=== PATIENT | female | born 1970 | race Caucasian/White ===

== ENCOUNTER → 2019-07-21 14:20 | Outpatient (BNVA) | payer BC, SELFPAY | PROVIDERS: Family Provider Family Medicine; PCP Family Medicine; Visit Provider Nurse Practitioner Women's Health | DX: Z01.419 Encounter for gynecological examination (general) (routine) without abnormal findings (principal); Z30.41 Encounter for surveillance of contraceptive pills; Z30.9 Encounter for contraceptive management, unspecified | CPT/HCPCS: 88175 ==

== ENCOUNTER → 2019-11-27 16:05 | Outpatient (BNVA) | payer BC, SELFPAY | PROVIDERS: Family Provider Family Medicine; PCP Family Medicine; Visit Provider Family Medicine | DX: E11.65 Type 2 diabetes mellitus with hyperglycemia (principal); E78.00 Pure hypercholesterolemia, unspecified; M79.7 Fibromyalgia; Z68.42 Body mass index [BMI] 45.0-49.9, adult | CPT/HCPCS: 80053; 80061; 83036 ==

== ENCOUNTER → 2020-05-06 15:48 | Outpatient (BNVA) | payer BC, SELFPAY | PROVIDERS: Family Provider Family Medicine; PCP Family Medicine; Visit Provider Family Medicine | DX: E11.65 Type 2 diabetes mellitus with hyperglycemia (principal); E03.9 Hypothyroidism, unspecified; I10 Essential (primary) hypertension; K21.9 Gastro-esophageal reflux disease without esophagitis; Z68.42 Body mass index [BMI] 45.0-49.9, adult | CPT/HCPCS: 80053; 83036; 84439; 84443; 85025 ==

== ENCOUNTER → 2020-05-24 09:01 | Outpatient (BNVA) | payer BC, SELFPAY | PROVIDERS: Family Provider Family Medicine; PCP Family Medicine; Referring Provider Family Medicine; Visit Provider Internal Medicine | DX: E03.9 Hypothyroidism, unspecified (principal); E11.65 Type 2 diabetes mellitus with hyperglycemia; E66.01 Morbid (severe) obesity due to excess calories | CPT/HCPCS: 99204 ==

== ENCOUNTER 2020-08-19 08:50 | Outpatient (CLI) | payer BC, SELFPAY ==
--- NOTE | 2020-08-19 09:00 | MM_ITS ---
WS: [id number] BILATERAL SCREENING DIGITAL MAMMOGRAM WITH CAD HISTORY: Z12.39 - Encounter for other screening for malignant neoplasm... COMPARISON: 05/25/2018 and 05/03/2014 Bilateral CC and MLO views submitted. Computer aided detection analyzed. Breast composition: There are scattered areas of fibroglandular density. No suspicious masses, microc alcifications or architectural distortion. Numerous nodules and calcifications scattered within each breast. MM/[place] [id number] IMPRESSION: BI-RADS: 2-Benign FOLLOW UP: 1 Year Follow-up
== END 2020-08-19 08:51 | disposition home or self-care (01) ==
LOC: RADSHAW 08:53
PROVIDERS: Family Provider Family Medicine; PCP Family Medicine; Visit Provider Nurse Practitioner Women's Health
DX: Z12.31 Encounter for screening mammogram for malignant neoplasm of breast (principal)
CPT/HCPCS: 77067

== ENCOUNTER → 2021-05-13 11:13 | Outpatient (BNVA) | payer BC, SELFPAY | PROVIDERS: Family Provider Family Medicine; PCP Family Medicine; Visit Provider Internal Medicine | DX: E03.9 Hypothyroidism, unspecified (principal); E11.65 Type 2 diabetes mellitus with hyperglycemia; E78.00 Pure hypercholesterolemia, unspecified | CPT/HCPCS: 80053; 80061; 83036; 84439; 84443 ==

== ENCOUNTER → 2021-08-11 12:34 | Outpatient (BNVA) | payer BC, SELFPAY | PROVIDERS: Family Provider Family Medicine; PCP Family Medicine; Visit Provider Family Medicine | DX: E11.65 Type 2 diabetes mellitus with hyperglycemia (principal); T67.5XXA Heat exhaustion, unspecified, initial encounter; I10 Essential (primary) hypertension | CPT/HCPCS: 80053; 83036 ==

== ENCOUNTER 2021-10-24 07:41 | Outpatient (CLI) | payer BC, SELFPAY ==
--- NOTE | 2021-10-24 07:46 | MM_ITS ---
WS: [id number] VIEWS: MLO and CC views both breasts. 3D digital tomosynthesis is also included in this exam. Comparison made with prior exam of 04/15/2011, 05/02/2013, 05/03/2014, 05/25/2018, 08/19/2020.. Findings: There was no sign of mass, architectural distortion or suspicious calcification in either breast. Fa tty MM/[place] [id number] Impression: BI-RADS: 2-Benign FOLLOW-UP: 1 Year Follow-up This mammogram was also analyzed by the Computer Aided Detection System R2 Imag e Vice President And Portfolio Manager.
== END 2021-10-24 07:42 | disposition home or self-care (01) ==
LOC: RAD 07:43
PROVIDERS: PCP Family Medicine; Visit Provider Nurse Practitioner Women's Health
DX: Z12.31 Encounter for screening mammogram for malignant neoplasm of breast (principal)
CPT/HCPCS: 77063; 77067

== ENCOUNTER 2022-01-30 08:17 | Outpatient (CLI) | payer BC, SELFPAY ==
--- NOTE | 2022-01-30 | ECG_ITS ---
[facility] Test Date: 2022-01-30 Pat Name: Nona Norris Department: Room: Gender: Female Substation Designer: : 1970 Requested By: Ravi Snowden Order Number: [id number] Ramiro MD: Ravi Snowden M.D. Interpretive Statements NAME OF STUDY: LEXISCAN SESTAMIBI STRESS TEST INDICATION: [svt] Procedure: At the baseline, the blood pressure was 107/74 mmHg with a heart rate of 75 bpm. The electrocardiogram showed normal sinus rhythm, normal axis with normal ST and T's. The Lexiscan was infused over a period of 20 seconds. A total of 0.4 mg of Lexiscan was infused. The stress phase was continued for a total of 5 minutes. Heart rate was at the end of stress phase was 97 bpm and a blood pressure of 117/77 mmHg. The EKG at the peak infusion revealed normal sinus rhythm with no significant ST-T wave changes. Sestamibi was injected 20 seconds after the Lexiscan infusion. Blood pressure at the end of recovery phase was 111/71 mmHg with a heart rate of 96 bpm. Conclusion: 1. Normal EKG response to Lexiscan infusion 2. No Lexiscan induced chest pain or cardiac arrhythmia. 3. Normal blood pressure and heart rate response. 4. Sestamibi/sestamibi perfusion scan pending; see separate report. Electronically Signed On 02-15-2022 13:35:45 LOCKER OPERATOR by Ravi Snowden M.D. [id number]
[2022-01-30 08:30] VITALS: BMI 47.5
--- NOTE | 2022-01-30 08:39 | NMCV_ITS ---
NM val perf SPECT r/s* [id number] Nona Norris Age: 52 Gender: F : 1970 Exam Date: 01/30/2022 09:27 Ordering Phys: Ravi Snowden M.D ([email or web address]) Technologist: ELLIE Rodriguez Exam Location: [facility] Indications: VENTRICULAR TACHYCARDIA STRESS TEST Please [facility] IMAGE PROTOCOL Rest/Stress 1 Lexiscan Day Radiopharmaceutical Dose (mCi) Administration Site Administered by Rest: Tc-99m 10.4 IV ELLIE Flores Sestamibi Stress:Tc-99m 32.9 IV ELLIE Flores Sestamibi Rest: 30-Jan-2022 60 Discovery 630 Stress: 30-Jan-2022 30 Discovery 630 0.4mg Lexiscan. Images obtained in supine and prone position. SPECT RESULTS Technical Quality: Excellent Raw Data Analysis: Breast attenuation Image Corrections: No attenuation or motion correction applied Summed Stress Score: 6 Summed Rest Score: 1 Summed Difference Score: 5 PERFUSION FINDINGS There is a small to medium sized area of mostly reversible perfusion defect noted in the apical lateral, apical and apical inferior march. This is consistent with small to medium sized area of small prior infarct with significant jackie-infarct ischemia in the LAD and Left circumflex artery territory. Significant improvement seen on prone imaging. Clinical correlation is required. FUNCTIONAL RESULTS (calculated via Gated SPECT) Stress Image LV EF (%): 88 Stress EDV (mL):82 TID: 1.19 Stress ESV (mL):10 FUNCTIONAL FINDINGS: There is normal left ventricular systolic function. IMPRESSIONS 1. Abnormal myocardial perfusion imaging with small sized prior infarct in LAD and Left circumflex artery terrtories with significant area of jackie-infarct ischemia. Significant improvement is noted on prone imaging, clinical correlation is required. 2. LV systolic function is normal Ravi Snowden MD (Electronically Signed) Final Date: 02 February 2022 09:05 S
[2022-01-30] MEDS: regadenoson 0.4 Mg/5 ml Syringe IVP (10:05)
[2022-01-30 10:23] VITALS: BP 111/71; PULSE 93
== END 2022-01-30 08:18 | disposition home or self-care (01) ==
PROVIDERS: PCP Family Medicine; Visit Provider Family Medicine
DX: I47.20 Ventricular tachycardia, unspecified (principal)
CPT/HCPCS: 36415; 78452; 93017; 96374; A9500; J2785

== ENCOUNTER 2022-02-27 20:33 | Inpatient (IN) | payer BC, SELFPAY ==
[2022-02-27 20:47] VITALS: BP 150/78; PULSE 152; RESP 18; TEMP 36.6; O2SAT 98; BMI 47.5
--- NOTE | 2022-02-27 20:51 | ECG_ITS ---
[facility] Test Date: 2022-02-27 Pat Name: Nona Norris Department: Room: Gender: Female Veneer Repairer Machine: : 1970 Requested By: Mj Yousif Order Number: [id number] Ramiro MD: Britany Simon M.D. Measurements Intervals [place] Rate: 131 P: 64 PA: 135 QRS: 78 QRSD: 78 T: 40 QT: 291 QTc: 430 Interpretive Statements SINUS TACHYCARDIA POSSIBLE ANTERIOR MYOCARDIAL INFARCTION , PROBABLY OLD [30 ms Q WAVE IN V3/V4, OR R < 0.2 mV IN V4] ST DEPRESSION, CONSIDER SUBENDOCARDIAL INJURY [0.1+ mV ST DEPRESSION] No previous ECG available for comparison Electronically Signed On 02-28-2022 7:09:15 DOUBLE ENDING MACHINE OPERATOR by Britany Simon M.D. [id number]
--- NOTE | 2022-02-27 21:16 | XRR_ITS ---
PROCEDURE INFORMATION: Exam: XR Chest Exam date and time: 02/27/2022 9:21 PM Age: 52 years old Clinical indication: Angina; Additional info: Cp TECHNIQUE: Imaging protocol: Radiologic exam of the chest. Views: 1 view. COMPARISON: No relevant prior studies available. FINDINGS: Lungs: Calcified granuloma right lung base. No consolidative pulmonary infiltrates are noted. Pleural spaces: No pleural effusion. No pneumothorax. Heart/Mediastinum: No cardiomegaly. Bones/joints: Unremarkable. XR/XR chest 1V portable [id number] IMPRESSION: No acute abnormality demonstrated.
[2022-02-27] MEDS: metoprolol tartrate 1 mg/1 mL SDV 5 mL 5 MG IVP (22:00)
[2022-02-27 22:11] LABS: Basophils % 0.2 %; Eosinophils # 0.1 10^3/uL (0.0-0.8); Eosinophils % 1.2 %; Hematocrit 43.2 % (37.0-47.0); Hemoglobin 13.6 g/dL (11.5-15.3); Lymphocytes # 2.5 10^3/uL (0.8-4.8); Mean Corpuscular HGB Conc 31.5 g/dL (30.0-36.0); Mean Corpuscular Hemoglobin 28.6 pg (28.0-34.0); Mean Corpuscular Volume 90.8 fl (81-99); Mean Platelet Volume 11.2 fL (7.4-10.4); Monocytes # 0.5 10^3/uL (0.2-0.9); Monocytes % 5.7 %; Neutrophils # 5.11 10^3/uL (1.8-7.7); Neutrophils % 62.5 %; Nucleated Red Blood Cells % 0 %; Platelet Count 276 10^3/cmm (130-400); Red Blood Count 4.76 10^6/uL (4.1-5.3); Red Cell Distribution Width 13.2 % (12.1-15.1); White Blood Count 8.2 10^3/uL (4.0-10.0)
--- NOTE | 2022-02-27 22:11 | ED_ITS ---
HPI - Arrhythmia/Palpitations General: Chief Complaint: Arrhythmia/Palpitations Stated Complaint: Tachycardia 210 Chest Pains Time Seen by Provider: 02/27/22 21:15 Source: patient History of Present Illness: 52-year-old female with a history of tachycardia a nd palpitations. She presents after her apple watch telling her that her heart rate was 210 at home. She was feeling significant palpitations, with discomfort radiating into her throat. She notes that she was a bit short of breath as well, and this worried her. She has had the symptoms before, but symptoms have been controlled on metoprolol more recently. She had a stress test recently that she was told was negative. She takes thyroid medication. She is not complain of being ill otherwise MD complaint: rapid heart beat and palpitations Onset (ago): hour(s) Duration: now resolved Severity: moderate Context: occurred during rest Arrhythmia history: SVT (Potentially) Associated symptoms: Reports anxiety, diaphoresis and short of breath; Deny vomiting Treatments prior to arrival: beta-chance Review of Systems Const: Reports: diaphoresis Eyes: Denies: change in vision ENMT: Denies: throat pain Card: Reports: chest pain and palpitations Resp: Reports: dyspnea; Denies: productive cough, non-productive cough or wheezing GI: Denies: vomiting : Denies: difficulty voiding Skin/Breast: Denies: rash Neuro: Denies: headache(s), weakness in extremities, dizziness or confusion Psych: Reports: anxiety [facility] ED PFSH: Medical History Fibromyalgia Hypercholesteremia Hypertension Hypothyroidism Waldo-- OZH Morbidly obese No pertinent past medical history neghx: dvt/pe PCP: Dr. Dominguez Palpitations Sustained ventricular tachycardia Type 2 diabetes mellitus with hyperglycemia Surgical History No pertinent past surgical history Family History Mother Diabetes Hypertension Colon cancer dx age 68 Father Diabetes Hypertension Heart disease Denies family history of Ovarian cancer Hypercholesteremia Breast cancer Uterine cancer Thyroid disease Stroke Social History Smoking and tobacco status: never smoked Physical Exam Const: COMMON NORMALS: no acute distress GENERAL APPEARANCE: cooperative; not ill appearing and not frail appearing HENMT: COMMON NORMALS: normocephalic, atraumatic and Normal external nose present HEAD & SCALP: normocephalic and atraumatic FACE & SINUS: normal facial exam and face symmetric NOSE: Normal external nose present Eye: COMMON NORMALS: Equal, round and reactive pupils present and EOMs intact bilaterally PUPIL: Yes Equal, round and reactive pupils present Neck/C-Spine: GENERAL: Yes trachea midline Chest: CHEST: Yes Symmetrical chest wall rise Resp: COMMON NORMALS: normal respiratory effort, No retractions, No use of accessory muscles and clear to auscultation bilaterally AUSCULTATION: clear to auscultation bilaterally Cardio: COMMON NORMALS: regular rhythm RATE: tachycardic RHYTHM: regular rhythm GI: COMMON NORMALS: Normal to inspection, nondistended, normoactive bowel sounds present Extremity: COMMON NORMALS: no pedal edema Neuro: PETTY COMA SCALE: document GCS findings [place] coma scale eye opening: Spontaneous Petty coma scale verbal response: Orientated Petty coma scale motor response: Obey commands [place] coma scale total score: 15 SENSORY EXAM: Yes extremities (intact) Psych: COMMON NORMALS: speech normal SPEECH: Yes normal speech Skin: COMMON NORMALS: no rashes or lesions noted GENERAL SKIN EXAM: no rashes or lesions noted Course Consultations: Consultation #1: Shelly Consultation #2: avani Michel Vital Signs: Vital signs: Vital Signs Temperature 98 F 02/27/22 20:47 Pulse Rate 96 02/27/22 23:37 Respiratory Rate 19 H 02/27/22 23:37 Blood Pressure 150/78 02/27/22 20:47 Pulse Oximetry 95 02/27/22 23:37 Oxygen Delivery Me thod 02/27/22 23:37 MDM - Arrhythmia/Palpitations Medical Decision Making 52-year-old female with a history of tachycardia. She presented with a high heart rate. She was given extra metoprolol here IV, and heart rate is under 100 now. She is asymptomatic essentially. EKG initially showed some ST segment depression with tachycardia. This is resolved essentially. Stress test from 01/30 reveals areas of the circumflex and distal LAD with some ischemic propert ies first troponin 40 with a delta of 42 at 2 hours. There were symptoms are resolved, EKG changes with tachycardia and troponin levels are concerning. Consulted cardiology from the ER, recommendations are to treat as a non-STEMI. She was given Plavix and aspirin here as well as Lovenox. She will go to the [facility]. Hospitalist is agreed to see the patient and admit. Cardiology will consult Lab Data 02/27/22 21:39 02/27/22 21:39 Radiology Impressions Chest X-Ray 02/27/22 21:16 IMPRESSION: No acute abnormality demonstrated. Laboratory Results WBC 8.2 10^3/uL (4.0-10.0) 02/27/22 21:39 RBC 4.76 10^6/uL (4.1-5.3) 02/27/22 21:39 Hgb 13.6 g/dL (11.5-15.3) 02/27/22 21:39 Hct 43.2 % (37.0-47.0) 02/27/22 21:39 MCV 90.8 fl (81-99) 02/27/22 21:39 MCH 28.6 pg (28.0-34.0) 02/27/22 21:39 MCHC 31.5 g/dL (30.0-36.0) 02/27/22 21:39 RDW 13.2 % (12.1-15.1) 02/27/22 21:39 Plt Count 276 10^3/cmm (130-400) 02/27/22 21:39 MPV 11.2 fL (7.4-10.4) H 02/27/22 21:39 Neut % (Auto) 62.5 % 02/27/22 21:39 Lymph % (Auto) 30.0 % 02/27/22 21:39 [place] % (Auto) 5.7 % 02/27/22 21:39 Eos % (Auto) 1.2 % 02/27/22 21:39 Baso % (Auto) 0.2 % 02/27/22 21:39 Neut # (Auto) 5.11 10^3/uL (1.8-7.7) 02/27/22 21:39 Lymph # (Auto) 2.5 10^3/uL (0.8-4.8) 02/27/22 21:39 [place] # (Auto) 0.5 10^3/uL (0.2-0.9) 02/27/22 21:39 Eos # (Auto) 0.1 10^3/uL (0.0-0.8) 02/27/22 21:39 Baso # (Auto) 0.0 10^3/uL (0.0-0.1) 02/27/22 21:39 Nucleated RBC % (auto) 0 % 02/27/22 21:39 Nucleated RBCs # 0.0 /100WBC 02/27/22 21:39 PT 12.80 SECONDS (12.1-14.9) 02/27/22 21:39 INR 0.94 (0.8-1.2) 02/27/22 21:39 APTT 23.5 SECONDS (23.9-36.7) L 02/27/22 21:39 D-Dimer <= 0.27 ug/mIFEU (0-0.59) 02/27/22 21:39 Sodium 141 mmol/L (136-145) 02/27/22 21:39 Potassium 4.1 mmol/L (3.5-5.1) 02/27/22 21:39 Chloride 105 mmol/L (98-107) 02/27/22 21:39 Carbon Dioxide 23 mmol/L (22-29) 02/27/22 21:39 Anion Gap 17.1 (5-19) 02/27/22 21:39 BUN 20 mg/dL (6-20) 02/27/22 21:39 Creatinine 0.9 mg/dL (0.5-0.9) 02/27/22 21:39 GFR Calculation 66.0 mL/min (90-130) L 02/27/22 21:39 Glucose 340 mg/dL (65-115) H 02/27/22 21:39 Estimat Average Glucose 226 02/27/22 21:39 Hemoglobin A1c 9.5 % (4.0-6.0) H 02/27/22 21:39 Calculated Osmolality 308 mOsm/kg (285-295) H 02/27/22 21:39 Calcium 9.6 mg/dL (8.5-10.5) 02/27/22 21:39 Total Bilirubin 0.2 mg/dL (0.15-1.2) 02/27/22 21:39 AST 23 U/L (0-32) 02/27/22 21:39 ALT 23 U/L (0-33) 02/27/22 21:39 Alkaline Phosphatase 87 U/L (35-105) 02/27/22 21:39 Troponin T Baseline 40 ng/L (0-10) H 02/27/22 21:39 Troponin T 120 Minute 82.86 ng/L (0-10) H 02/27/22 23:17 Delta Troponin T 42.86 ABS# (0-10) H* 02/27/22 23:17 NT-Pro-B Natriuret Pep 20 pg/mL (0-125) 02/27/22 21:39 Total Protein 7.3 g/dL (6.6-8.7) 02/27/22 21:39 Albumin 4.0 g/dL (3.5-5.2) 02/27/22 21:39 Globulin 3.3 g/dL (1.3-4.6) 02/27/22 21:39 Triglycerides 226 mg/dL (0-150) H 02/27/22 23:17 Cholesterol 88 mg/dL (0-200) 02/27/22 23:17 LDL Cholesterol, Calc 17 mg/dL (50-129) L 02/27/22 23:17 HDL Cholesterol 26 mg/dL (60-100) L 02/27/22 23:17 LDL/HDL Ratio 0.65 RATIO (0.00-3.22) 02/27/22 23:17 Cholesterol/HDL Ratio 3.38 mg/dL (0.0-4.40) 02/27/22 23:17 TSH 1.30 uIU/mL (0.27-4.20) 02/27/22 23:17 Critical Care Time Critical Care Time: Critical Care Time: Yes Total Critical Care Time: 35 Attestation: This case had a high probability of a clinically significant, sudden, or life threatening deterioration of this patient's condition which required my full and direct attention, intervention and personal management. Time is independent of any procedures performed Discharge Plan Discharge Patient Disposition: Admitted As Inpatient Admit Provider: Amanda Bravo Clinical Impression: Chest pain, Non-STEMI (non-ST elevated myocardial infarction) Condition: Stable Coding Level of Care Code ED Caser Up for Chg Fwd Exam Comprehensive
[2022-02-27 22:33] LABS: INR 0.94 (0.8-1.2); Partial Thromboplastin Time 23.5 SECONDS (23.9-36.7)
[2022-02-27 22:36] LABS: D Dimer <= 0.27 ug/mIFEU (0-0.59)
[2022-02-27 22:43] LABS: Troponin(5th) Baseline 40 ng/L (0-10)
[2022-02-27 22:47] LABS: Alanine Aminotransferase 23 U/L (0-33); Alkaline Phosphatase 87 U/L (35-105); Anion Gap 17.1 (5-19); Aspartate Amino Transferase 23 U/L (0-32); Blood Urea Nitrogen 20 mg/dL (6-20); Calcium 9.6 mg/dL (8.5-10.5); Carbon Dioxide 23 mmol/L (22-29); Chloride 105 mmol/L (98-107); Globulin 3.3 g/dL (1.3-4.6); Glucose 340 mg/dL (65-115); NT Pro B Type Natriuretic Pept 20 pg/mL (0-125); Osmolality Calculated 308 mOsm/kg (285-295); Potassium 4.1 mmol/L (3.5-5.1); Sodium 141 mmol/L (136-145); Thyroid Stimulating Hormone 1.48 uIU/mL (0.27-4.20); Total Bilirubin 0.2 mg/dL (0.15-1.2); Total Protein 7.3 g/dL (6.6-8.7)
--- NOTE | 2022-02-27 23:18 | ECG_ITS ---
[facility] Test Date: 2022-02-27 Pat Name: Nona Norris Department: Room: Gender: Female Tutorial Laboratory Supervisor: : 1970 Requested By: Mj Yousif Order Number: [id number] Ramiro MD: Will Michel M.D. Measurements Intervals [place] Rate: 89 P: 132 CT: 137 QRS: 101 QRSD: 85 T: 78 QT: 339 QTc: 414 Interpretive Statements SINUS RHYTHM ARM LEADS REVERSED [INVERTED P AND QRS IN I] Compared to ECG 02/27/2022 20:51:20 Sinus tachycardia no longer present Myocardial infarct finding no longer present ST (T wave) deviation no longer present Electronically Signed On 03-01-2022 20:09:29 DISPATCHER BUS AND TROLLEY by Will Michel M.D. [id number]
[2022-02-27 23:37] VITALS: PULSE 96; RESP 19; O2SAT 95
[2022-02-28] VITALS (23 sets, daily range): BP systolic 98–143; BP diastolic 60–95; PULSE 78–100; RESP 15–19; TEMP 36.8–37.1; O2SAT 91–98
[2022-02-28 00:10] LABS: Troponin 5 2HR 82.86 ng/L (0-10)
[2022-02-28 00:39] LABS: Troponin 5 2HR Delta 42.86 ABS# (0-10)
--- NOTE | 2022-02-28 01:51 | P.HP_ITS ---
Providers/Chief Complaint Primary Care Provider: Raj Dominguez MD Chief Complaint: Tachycardia 210 Chest Pains History of Present Illness Nona Norris is a 52 year old female has medical history of fibromyalgia, hypercholesterolemia, hypertension, hypothyroidism, type 2 diabetes mellitus scented to the hospital today with complaint that her heart rate was 210 at home. She wears an apple watch and noted her heart rate to be really high. She was also feeling palpitations at that time and had some discomfort radiating into her jaw. Patient reports some shortness of breath as well. She says that she has had symptoms like this before but she has been on metoprolol and has been doing better. She recently had a stress test outpatient but was told that it was negative and there is nothing to worry about.. She says she is on t hyroid medicine. Otherwise considers herself pretty healthy. ED course: 150/78, respiratory 19, pulse 96, temperature 98. Patient given IV metoprolol and heart rate controlled to be below 100. EKG done in the ER did not show any acute ischemic changes at this time. Patient is asymptomatic. Ini yuval when heart rate was high EKG did show ST depression with heart tachycardia which was later resolved. Initial troponin 40 with delta of 42 at 2 hours. Cardiology was consulted. They are advised to treat the patient as NSTEMI. She was given aspirin and Plavix in the ER as well as therapeutic Lovenox. She will be admitted to the cardiac stepdown unit. Results from stress test showed abnormal myocardial perfusion imaging with small sized prior infarct in LAD and left circumflex artery territories with significant area of jackie-infarct ischemia. Significant improvement is noted on prone imaging, clinical correlation is required. LV systolic function is normal. There is small to medium sized area of mostly reversible perfusion defect noted in apical lateral apical and apical inferior leads. There is no echo available on file. Medications/Allergies Home Medications Medication Instructions Recorded Confirmed Last Taken Type diclofenac sodium 75 mg See Rx Instructions .Route 02/17/21 11/27/21 Unknown Rx tablet,delayed release .COMPLEX #180 tabs empagliflozin 25 mg tablet 25 mg PO DAILY #90 tabs 05/20/21 11/27/21 Unknown Rx (Jardiance) metformin 500 mg tablet See Rx Instructions .Route 06/27/21 11/27/21 Unknown Rx .COMPLEX #360 tabs metoprolol tartrate 50 mg tablet 25 mg .Route .COMPLEX 07/06/22 10/06/22 Unknown History flash glucose scanning reader #1 ea 08/28/21 11/27/21 Unknown Rx (FreeStyle Rosamaria 2 [place]) flash glucose sensor (FreeStyle #6 ea 08/28/21 11/27/21 Unknown Rx Rosamaria 2 Sensor kit) cyclobenzaprine 10 mg tablet 10 mg PO BID PRN muscle spasm #30 09/02/21 11/27/21 Unknown Rx tabs lisinopril 20 See Rx Instructions .Route 09/15/21 11/27/21 Unknown Rx mg-hydrochlorothiazide 25 mg tablet .COMPLEX #90 tabs pregabalin 200 mg capsule (Lyrica) 200 mg PO BID #180 caps 09/16/21 11/27/21 Unknown Rx rosuvastatin 20 mg tablet 20 mg PO DAILY #90 tabs 11/27/21 11/27/21 Unknown Rx azithromycin 250 mg tablet See Rx Instructions PO .COMPLEX #6 01/12/22 Unknown Rx tabs insulin detemir U-100 100 unit/mL 100 unit SUBCUT BID 30 days #60 mL 01/20/22 Unknown Rx (3 mL) subcutaneous pen (Levemir FlexTouch U-100 Insulin) fluconazole 150 mg tablet 150 mg PO Q3D 12 days #4 tabs 01/21/22 Unknown Rx (Diflucan) insulin lispro 100 unit/mL See Rx Instructions SUBCUT TID #45 01/30/22 Unknown Rx subcutaneous pen (Humalog KwikPen mL (U-100) Insulin) levothyroxine 88 mcg tablet See Rx Instructions .Route 02/05/22 Unknown Rx .COMPLEX #90 tabs omeprazole magnesium 20 mg 20 mg PO BID 90 days #180 tabs 02/19/22 Unknown Rx tablet,delayed release (Prilosec OTC) hydrocodone 10 mg-acetaminophen 1 tab PO DAILY PRN pain 30 days 02/24/22 Unknown Rx 325 mg tablet #30 tabs norethindrone (contraceptive) 0.35 0.35 mg PO DAILY #28 tabs 02/24/22 Unknown Rx mg tablet Allergies Allergy/AdvReac Type Severity Reaction Status Date / Time indomethacin Allergy headache Verified 01/30/22 08:31 Penicillins Allergy SOB Verified 01/30/22 08:31 PFSH Acute PFSH: Medical History Fibromyalgia Hypercholesteremia Hypertension Hypothyroidism Waldo-- OZH Morbidly obese No pertinent past medical history neghx: dvt/pe PCP: Dr. Dominguez Palpitations Sustained ventricular tachycardia Type 2 diabetes mellitus with hyperglycemia Surgical History No pertinent past surgical history Family History Mother Diabetes Hypertension Colon cancer dx age 68 Father Diabetes Hypertension Heart disease Denies family history of Ovarian cancer Hypercholesteremia Breast cancer Uterine cancer Thyroid disease Stroke Social History Smoking and tobacco status: never smoked Vitals/I&O/Wt Last Vital Signs Temp 98 F 02/27/22 20:47 Pulse 96 02/27/22 23:37 Resp 19 H 02/27/22 23:37 BP 150/78 02/27/22 20:47 Pulse Ox 95 02/27/22 23:37 O2 Del Method 02/27/22 23:37 Weight last 48 hrs Weight 117.934 kg Physical Exam Narrative: General: Alert oriented x3, no acute distress HEENT: Normocephalic, atraumatic, EOMI, Cardio: Regular rate rhythm, normal S1-S2, Respiratory: Clear to auscultation bilaterally no wheezes no rhonchi. GI: Abdomen soft, nontender, nondistended, bowel sounds + Behavior: Appropriate and cooperative Extremities: No edema Data 02/27/22 21:39 02/27/22 21:39 A&P Assessment and plan (1) Chest pain: (2) Non-STEMI (non-ST elevated myocardial infarction): (3) Palpitations: (4) GERD (gastroesophageal reflux disease): Qualifiers: Esophagitis presence: without esophagitis Qualified Code(s): K21.9 - Gastro-esophageal reflux disease without esophagitis (5) Morbidly obese: (6) Hypertension: Qualifiers: Hypertension type: essential hypertension Qualified Code(s): I10 - Essential (primary) hypertension (7) Hypothyroidism: Qualifiers: Hypothyroidism type: acquired Qualified Code(s): E03.9 - Hypothyroidism, unspecified (8) Hypercholesteremia: (9) Type 2 diabetes mellitus with hyperglycemia: Qualifiers: Diabetes mellitus continuous churn buttermaker insulin use: without continuous churn buttermaker use Qualified Code(s): E11.65 - Type 2 diabetes mellitus with hyperglycemia Plan #NSTEMI #Abnormal stress test #Diabetes mellitus, insulin-dependent #Hypothyroidism #History of palpitations, SVT, controlled on metoprolol #Hypertension -Therapeutic Lovenox, aspirin, Plavix, beta-chance metoprolol 25 daily ? Insulin sliding scale low-dose intensity ? Detemir 120 units twice daily ? Hold Jardiance at this time ? Pregabalin 200 twice daily ? Trend troponin ? Cardiology consulted. Dr. Michel will evaluate patient ? Check echo ? Hold metformin ? N.p.o. at midnight -Continue levothyroxine, lisinopril 20, hydrochlorothiazide Full code DVT prophylaxis: Therapeutic Lovenox Attestations Medical Necessity Statement*: Will cross greater than 2 midnight stay for management of NSTEMI Coding Level of Care Code Acute Rack Puncher for [facility] Fwd Diagnoses Chest pain R07.9 Non-STEMI (non-ST elevated myocardial infarction) I21.4 Palpitations R00.2 GERD (gastroesophageal reflux disease) K21.9 Esophagitis presence: without esophagitis Morbidly obese E66.01 Hypertension I10 Hypertension type: essential hypertension Hypothyroidism E03.9 Hypothyroidism type: acquired Hypercholesteremia E78.00 Type 2 diabetes mellitus with hyperglycemia E11.65 Diabetes mellitus continuous churn buttermaker insulin use: without continuous churn buttermaker use
[2022-02-28 02:35] LABS: Estmated Average Glucose 226; Hemoglobin A1C 9.5 % (4.0-6.0)
[2022-02-28 02:35] LABS: Chol HDL Ratio 3.38 mg/dL (0.0-4.40); Cholesterol 88 mg/dL (0-200); HDL Cholesterol 26 mg/dL (60-100); LDL Cholesterol Calculated 17 mg/dL (50-129); LDL HDL Ratio 0.65 RATIO (0.00-3.22); Triglycerides 226 mg/dL (0-150)
[2022-02-28] MEDS: aspirin 325 mg Tablet PO (02:58)
[2022-02-28] MEDS: clopidogrel 300 mg Tablet PO (02:58)
--- NOTE | 2022-02-28 03:16 | ECG_ITS ---
[facility] Test Date: 2022-02-28 Pat Name: Nona Norris Department: Room: ED Gender: Female Apple Sorter: : 1970 Requested By: Mj Yousif Order Number: [id number] Ramiro MD: Will Michel M.D. Measurements Intervals [place] Rate: 90 P: 106 FL: 127 QRS: 51 QRSD: 82 T: 38 QT: 345 QTc: 424 Interpretive Statements SINUS RHYTHM POSSIBLE ANTERIOR MYOCARDIAL INFARCTION , PROBABLY OLD [30 ms Q WAVE IN V3/V4, OR R < 0.2 mV IN V4] Compared to ECG 02/27/2022 23:18:34 Myocardial infarct finding now present Electronically Signed On 03-01-2022 20:12:16 CASE PLANNER by Will Michel M.D. [id number]
[2022-02-28] MEDS: sodium chloride 0.9% 1,000 ML 75 ML IV (03:40)
[2022-02-28] MEDS: enoxaparin 120 mg/0.8 mL Syringe SUBCUT (03:45)
[2022-02-28 06:01] LABS: Troponin 5 6HR 132.2 ng/L (0-10); Troponin 5 6HR Delta 92.2 ng/L (0-12)
--- NOTE | 2022-02-28 08:13 | PC.PHAR ---
pt states she takes care of her own medications-pt states she takes all the medications entered-some medications dont show when last filled on ext med history pt states she gets mail order and some meds from the [facility] plan-notes are made in the pharmacy comments
[2022-02-28] MEDS: levothyroxine 88 mcg Tablet PO (08:29)
[2022-02-28] MEDS: hydroCHLOROthiazide 25 mg Tablet PO (08:29)
[2022-02-28] MEDS: lisinopril 20 mg Tablet PO (08:30)
[2022-02-28] MEDS: pantoprazole DR 40 mg Tablet PO ×2 (08:30→17:31)
[2022-02-28] MEDS: atorvastatin 40 mg Tablet 20 MG PO (08:30)
[2022-02-28] MEDS: insulin lispro 100 unit/1 mL SUBCUT ×3 (08:31→21:11)
--- NOTE | 2022-02-28 08:38 | PM.CONSULT ---
Providers/Reason For Consult Consulting Physician/Specialty*: MYLES Michel MD cardiology/ Reason for Consult*: Elevated troponin T/tachycardia/abnormal EKG Requesting Physician: Dr. Bravo Attending Physician: Carlo Quintanilla Primary Care Provider: Raj Dominguez MD History of Present Illness History of Present Illness Nona Norris is a 52 year old female with a history of hypertension, diabetes, dyslipidemia, obesity, presented with a prolonged episode of chest pain and palpitation. The symptoms started around 7:00 in the evening. It may have lasted at least for an hour. She had a pressure-like pain in the mid substernal region, radiating to the right shoulder, to the back, to the neck and to the jaw. She had some shortness of breath. No nausea or sweating. She had a palpitations and the heart rate was found to be in the 200 range on the apple watch. The heart rate is going up and down to 210-120 or 130. Apparently she has been having episodes of palpitations once or twice a month since November. She had a heart monitor which did not reveal anything arrhythmia. She was placed on metoprolol. Usually the episodes may last fully for couple of minutes and then goes away by itself. However yesterday she had this episode lasting longer and had the associated chest discomfort/pain. For this reason, she was brought to the emergency room. She has no fever, chills or cough. The patient had a recent Myocardial perfusion imaging on 02 February. She was found to have areas of fixed and reversible defects, suggesting myocardial scarring in the distribution of the left anterior descending artery and the circumflex artery with significant areas of jackie-infarction ischemia. The results are as mentioned below. She has a history of high blood pressure for the last more than 10 years. She also has type 2 diabetes, insulin requiring. She has dyslipidemia, hypothyroidism and fibromyalgia. Denies any smoking abuse. Her father is known to have some type of arrhythmia and had a recent ablation. No other relevant family history. She denies any fever, chills or cough. Review of Systems Narrative: CONSTITUTIONAL: No fever or chills. EYES: No blurring of vision or other visual disturbances lately. ENT: No hoarseness of voice, auditory disturbances or sore throat. CARDIOVASCULAR: As mentioned above. RESPIRATORY: No significant cough. GASTROINTESTINAL: No hematemesis or melena. GENITOURINARY: No dysuria or hematuria. INTEGUMENTARY: No skin rashes or history of skin cancer. NEURO: No transient ischemic attacks or amaurosis. PSYCHIATRIC: No history of psychosis or major depression. HEMATOLOGIC: No bleeding disorders or significant anemia. ENDOCRINE: Type 2 diabetes MUSCULOSKELETAL: Fibromyalgia as mentioned above ALLERGY/IMMUNOLOGY: As mentioned above. Medications/Allergies Home Medications Medication Instructions Recorded Confirmed Last Taken Type empagliflozin 25 mg tablet 25 mg PO DAILY #90 tabs 05/20/21 02/28/22 Unknown Rx (Jardiance) metoprolol tartrate 50 mg tablet 50 mg PO BID 08/27/21 02/28/22 Unknown History flash glucose scanning reader #1 ea 08/28/21 02/28/22 Unknown Rx (FreeStyle Rosamaria 2 [place]) flash glucose sensor (FreeStyle #6 ea 08/28/21 02/28/22 Unknown Rx Rosamaria 2 Sensor kit) cyclobenzaprine 10 mg tablet 10 mg PO BID PRN muscle spasm #30 09/02/21 02/28/22 Unknown Rx tabs pregabalin 200 mg capsule (Lyrica) 200 mg PO BID #180 caps 09/16/21 02/28/22 Unknown Rx insulin detemir U-100 100 unit/mL 100 unit SUBCUT BID 30 days #60 mL 01/20/22 02/28/22 Unknown Rx (3 mL) subcutaneous pen (Levemir FlexTouch U-100 Insulin) insulin lispro 100 unit/mL See Rx Instructions SUBCUT TID #45 01/30/22 02/28/22 Unknown Rx subcutaneous pen (Humalog KwikPen mL (U-100) Insulin) omeprazole magnesium 20 mg 20 mg PO BID 90 days #180 tabs 02/19/22 02/28/22 Unknown Rx tablet,delayed release (Prilosec OTC) hydrocodone 10 mg-acetaminophen 1 tab PO DAILY PRN pain 30 days 02/24/22 02/28/22 Unknown Rx 325 mg tablet #30 tabs albuterol sulfate 90 mcg/actuation 2 puff inhalation QID PRN 02/28/22 02/28/22 Unknown History aerosol inhaler (ProAir HFA) Shortness Of Breath diclofenac sodium 75 mg 75 mg PO BID PRN Pain 02/28/22 02/28/22 Unknown History tablet,delayed release fluconazole 150 mg tablet 150 mg PO Q3D PRN yeast infection 02/28/22 02/28/22 Unknown History levothyroxine 88 mcg tablet 88 mcg PO QAM 02/28/22 02/28/22 Unknown History lisinopril 20 1 tab PO QAM 02/28/22 02/28/22 Unknown History mg-hydrochlorothiazide 25 mg tablet metformin 500 mg tablet 1,000 mg PO BID 02/28/22 02/28/22 Unknown History norethindrone (contraceptive) 0.35 0.35 mg PO BEDTIME 02/28/22 02/28/22 Unknown History mg tablet rosuvastatin 20 mg tablet 20 mg PO QAM 02/28/22 02/28/22 Unknown History Allergies Allergy/AdvReac Type Severity Reaction Status Date / Time indomethacin Allergy headache Verified 02/28/22 08:02 Penicillins Allergy SOB Verified 02/28/22 08:02 Current Medications Generic Name Dose Route Start Last Admin Trade Name Freq PRN Reason Stop Dose Admin Atorvastatin Calcium 20 mg 02/28/22 09:00 02/28/22 08:30 Atorvastatin 40 Mg Tablet PO 20 mg DAILY LUCIUS Administration Enoxaparin Sodium 120 mg 02/28/22 02:00 02/28/22 03:45 Enoxaparin 120 Mg/0.8 Ml Syringe SUBCUT 120 mg Q12H LUCIUS Administration Hydrochlorothiazide 25 mg 02/28/22 09:00 02/28/22 08:29 Hydrochlorothiazide 25 Mg Tablet PO 25 mg DAILY LUCIUS Administration Sodium Chloride 1,000 mls @ 75 mls/hr 02/28/22 02:00 02/28/22 03:40 Sodium Chloride 0.9% IV 75 mls/hr .[id number] LUCIUS Administration Insulin Human Lispro 0 unit 02/28/22 08:00 02/28/22 08:31 Insulin Lispro 100 Unit/1 Ml SUBCUT 8 unit WM&BEDTIME LUCIUS Administration Protocol Levothyroxine Sodium 88 mcg 02/28/22 09:00 02/28/22 08:29 Levothyroxine 88 Mcg Tablet PO 88 mcg DAILY LUCIUS Administration Lisinopril 20 mg 02/28/22 09:00 02/28/22 08:30 Lisinopril 20 Mg Tablet PO 20 mg DAILY LUCIUS Administration Pantoprazole Sodium 40 mg 02/28/22 09:00 02/28/22 08:[address] 40 Mg Tablet PO 40 mg BID LUCIUS Administration PFSH Acute PFSH: Medical History Fibromyalgia Hypercholesteremia Hypertension Hypothyroidism Wal[place]-- OZH Morbidly obese No pertinent past medical history neghx: dvt/pe PCP: Dr. Dominguez Palpitations Sustained ventricular tachycardia Type 2 diabetes mellitus with hyperglycemia Surgical History No pertinent past surgical history Family History Mother Diabetes Hypertension Colon cancer dx age 68 Father Diabetes Hypertension Heart disease Denies family history of Ovarian cancer Hypercholesteremia Breast cancer Uterine cancer Thyroid disease Stroke Social History Smoking and tobacco status: never smoked Vitals/I&O/Wt Last Vital Signs Temp 98 F 02/27/22 20:47 Pulse 91 02/28/22 06:50 Resp 18 02/28/22 06:50 BP 139/73 02/28/22 06:50 Pulse Ox 95 02/28/22 06:50 O2 Del Method 02/28/22 06:50 Weight last 48 hrs Weight 260 lb Physical Exam Narrative: GENERAL: The patient is alert and oriented times three. Not in any acute distress. Morbidly obese HEENT: No significant pallor, icterus or lymphadenopathy.Oral cavity: There are no mucous membrane lesions. NECK: Trachea appears to be central. No masses noted. No JVD or thyromegaly appreciated. RESPIRATORY: Chest is symmetrical. No intercostals muscle retraction or any accessory muscle activation. There is no chest wall tenderness. Breath sounds are heard bilaterally. No rales or rhonchi heard. No evidence of any consolidation. BREASTS: Deferred. HEART: The heart sounds are normal. No S3 or S4. No significant murmurs. No pericardial rub ABDOMEN: No vessel pulsations or distention. No tenderness. No organomegaly appreciated. Bowel sounds are normally heard. : Deferred. RECTAL: Deferred. LYMPHATIC: No lymphadenopathy noted in the neck. EXTREMITIES: No edema or cyanosis. No clubbing. MUSCULOSKELETAL: No acute joint deformities or swelling SKIN: There are no significant rashes or ecchymosis NEUROPSYCHIATRIC: The patient is alert and oriented x3. Appears to be in a good mood. No tremors or rigidity noted. Data 02/27/22 21:39 02/27/22 21:39 Other Labs: Laboratory Last Values WBC 8.2 10^3/uL (4.0-10.0) 02/27/22 21:39 RBC 4.76 10^6/uL (4.1-5.3) 02/27/22 21:39 Hgb 13.6 g/dL (11.5-15.3) 02/27/22 21:39 Hct 43.2 % (37.0-47.0) 02/27/22 21:39 MCV 90.8 fl (81-99) 02/27/22 21:39 MCH 28.6 pg (28.0-34.0) 02/27/22 21:39 MCHC 31.5 g/dL (30.0-36.0) 02/27/22 21:39 RDW 13.2 % (12.1-15.1) 02/27/22 21:39 Plt Count 276 10^3/cmm (130-400) 02/27/22 21:39 MPV 11.2 fL (7.4-10.4) H 02/27/22 21:39 Neut % (Auto) 62.5 % 02/27/22 21:39 Lymph % (Auto) 30.0 % 02/27/22 21:39 [place] % (Auto) 5.7 % 02/27/22 21:39 Eos % (Auto) 1.2 % 02/27/22 21:39 Baso % (Auto) 0.2 % 02/27/22 21:39 Neut # (Auto) 5.11 10^3/uL (1.8-7.7) 02/27/22 21:39 Lymph # (Auto) 2.5 10^3/uL (0.8-4.8) 02/27/22 21:39 [place] # (Auto) 0.5 10^3/uL (0.2-0.9) 02/27/22 21:39 Eos # (Auto) 0.1 10^3/uL (0.0-0.8) 02/27/22 21:39 Baso # (Auto) 0.0 10^3/uL (0.0-0.1) 02/27/22 21:39 Nucleated RBC % (auto) 0 % 02/27/22 21:39 Nucleated RBCs # 0.0 /100WBC 02/27/22 21:39 PT 12.80 SECONDS (12.1-14.9) 02/27/22 21:39 INR 0.94 (0.8-1.2) 02/27/22 21:39 APTT 23.5 SECONDS (23.9-36.7) L 02/27/22 21:39 D-Dimer <= 0.27 ug/mIFEU (0-0.59) 02/27/22 21:39 Sodium 141 mmol/L (136-145) 02/27/22 21:39 Potassium 4.1 mmol/L (3.5-5.1) 02/27/22 21:39 Chloride 105 mmol/L (98-107) 02/27/22 21:39 Carbon Dioxide 23 mmol/L (22-29) 02/27/22 21:39 Anion Gap 17.1 (5-19) 02/27/22 21:39 BUN 20 mg/dL (6-20) 02/27/22 21:39 Creatinine 0.9 mg/dL (0.5-0.9) 02/27/22 21:39 GFR Calculation 66.0 mL/min (90-130) L 02/27/22 21:39 Glucose 340 mg/dL (65-115) H 02/27/22 21:39 Estimat Average Glucose 226 02/27/22 21:39 Hemoglobin A1c 9.5 % (4.0-6.0) H 02/27/22 21:39 Calculated Osmolality 308 mOsm/kg (285-295) H 02/27/22 21:39 Calcium 9.6 mg/dL (8.5-10.5) 02/27/22 21:39 Total Bilirubin 0.2 mg/dL (0.15-1.2) 02/27/22 21:39 AST 23 U/L (0-32) 02/27/22 21:39 ALT 23 U/L (0-33) 02/27/22 21:39 Alkaline Phosphatase 87 U/L (35-105) 02/27/22 21:39 Troponin T Baseline 40 ng/L (0-10) H 02/27/22 21:39 Troponin T 120 Minute 82.86 ng/L (0-10) H 02/27/22 23:17 Delta Troponin T 42.86 ABS# (0-10) H* 02/27/22 23:17 Troponin T Hi Sens 6Hr 132.2 ng/L (0-10) H 02/28/22 05:25 Troponin T Hi Sens 6Hr Delta 92.2 ng/L (0-12) H* 02/28/22 05:25 NT-Pro-B Natriuret Pep 20 pg/mL (0-125) 02/27/22 21:39 Total Protein 7.3 g/dL (6.6-8.7) 02/27/22 21:39 Albumin 4.0 g/dL (3.5-5.2) 02/27/22 21:39 Globulin 3.3 g/dL (1.3-4.6) 02/27/22 21:39 Triglycerides 226 mg/dL (0-150) H 02/27/22 23:17 Cholesterol 88 mg/dL (0-200) 02/27/22 23:17 LDL Cholesterol, Calc 17 mg/dL (50-129) L 02/27/22 23:17 HDL Cholesterol 26 mg/dL (60-100) L 02/27/22 23:17 LDL/HDL Ratio 0.65 RATIO (0.00-3.22) 02/27/22 23:17 Cholesterol/HDL Ratio 3.38 mg/dL (0.0-4.40) 02/27/22 23:17 TSH 1.30 uIU/mL (0.27-4.20) 02/27/22 23:17 Myocardial perfusion imaging: My impression: ?1. Abnormal myocardial perfusion imaging with small sized prior infarct in LAD ?and Left circumflex artery terrtories with significant area of jackie-infarct ?ischemia.? Significant improvement is noted on prone imaging, clinical ?correlation is required. ?2. LV systolic function is normal Echo: My impression: ?Normal left ventricular size and systolic function, EF 59 %. No ?regional wall motion abnormalities. Grade I/IV diastolic ?dysfunction (abnormal relaxation filling pattern), normal to ?mildly elevated filling pressures. ?Trace tricuspid valve regurgitation. ?Normal cardiac chamber sizes. ?There is no pericardial effusion. ?No similar previous studies are available for comparison EKG 1: My Interpretation: The EKG showed sinus tachycardia with a rate of [address] depressions in the inferior lateral leads. Poor R wave progression. EKG 2: My Interpretation: Normal sinus rhythm with poor R wave progression. No severe ST-T changes. Other data: 24-hour Holter monitor in October 23. The observed rhythms are sinus rhythm to sinus tachycardia. The Maximum Heart Rate recorded was 142 bpm, :02:38 pm, the Minimum Heart Rate recorded was 82 bpm, Day :16:15 am and the Average Heart Rate was 101 bpm. 2. There were 67 PVCs with a burden of 0.05 %. 3. There were 26 PSVCs with a burden of 0.02 %. There were 2 occurrences of Supraventricular Tachycardia with the longest episode 12 beats, Day :02:40 pm and the fastest episode 142 bpm, Day :02:40 pm. 4. There were 4 Patient reported events.1 unspecified patient symptom correlated with sinus tachycardia with isolated ventricular ectopy.? Other episodes correlated with sinus tachycardia. A&P Assessment and plan (1) Non-STEMI (non-ST elevated myocardial infarction): The patient is her clinical features are consistent with a non-ST elevation myocardial infarction. She has Significant delta for the troponin T at the 2 and 6-hour intervals. The prolonged episode of chest pain, multiple risk factors for coronary artery disease, elevated troponin T and abnormal EKG-all are suggesting. Patient may be treated with subcu Lovenox, Plavix, aspirin, beta-chance, statin and other symptomatic measures. The abnormal Myocardial perfusion imaging also is suggestive of underlying coronary ischemia. Because of her obesity, the specificity of the study could be compromised. (2) Tachyarrhythmia: The exact nature of the tachyarrhythmia is not clear at this time. This may need to be further evaluated. Possibility of atrial fibrillation is a consideration. (3) Hypertension: Blood pressures are stage II. Antihypertensive medications need to be optimized. Qualifiers: Hypertension type: essential hypertension Qualified Code(s): I10 - Essential (primary) hypertension (4) Morbidly obese: Importance of lifestyle modification need to be further emphasized. (5) Fibromyalgia: May continue on the current management (6) Hypothyroidism: Clinically seems to be euthyroid. Qualifiers: Hypothyroidism type: acquired Qualified Code(s): E03.9 - Hypothyroidism, unspecified (7) Type 2 diabetes mellitus with hyperglycemia: Aggressive management be appropriate. We will hold off on the metformin. Qualifiers: Diabetes mellitus long distance billing operator insulin use: without halfway use Qualified Code(s): E11.65 - Type 2 diabetes mellitus with hyperglycemia (8) Dyslipidemia: Patient is on a high-dose statin. May continue the same. Plan In view of the patient's high risk status, in order to further evaluate the coronary status, a cardiac catheterization would be appropriate. The risk of bleeding, hematoma, vascular injury, myocardial infarction, myocardial perforation, malignant cardiac arrhythmias ,CVA, renal failure and other concomitant complications were explained in detail. Patient understood this well and consented to proceed. We may go ahead and do schedule for the cardiac catheterization as early as possible. Based on the results, further recommendations will be made. Consult Attestations Medical Necessity Statement: Patient requires continued hospital stay for close monitoring and further management Coding Level of Care Code Acute [place] [employer] Fwd History Detailed Exam Detailed Diagnoses Non-STEMI (non-ST elevated myocardial infarction) I21.4 Tachyarrhythmia R00.0 Hypertension I10 Hypertension type: essential hypertension Morbidly obese E66.01 Fibromyalgia M79.7 Hypothyroidism E03.9 Hypothyroidism type: acquired Type 2 diabetes mellitus with hyperglycemia E11.65 Diabetes mellitus halfway insulin use: without long distance billing operator use Dyslipidemia E78.5
--- NOTE | 2022-02-28 08:46 | USCV_ITS ---
Nona Norris Age: 52 Gender: F : 1970 Exam Date: 02/28/2022 08:54 Ordering Phys: Amanda Bravo MD Technologist: DUC Exam Location: [facility] [place] Indication: Chest Pain BP: 139 / 73 HR: 76 Rhythm: Sinus Technical Quality: Adequate MEASUREMENTS (Male / Female) Normal Values 2D ECHO LV Diastolic Diameter PLAX 4.5 cm 4.2 - 5.9 / 3.9 - 5.3 cm LV Systolic Diameter PLAX 3.9 cm IVS Diastolic Thickness 0.7 cm 0.6 - 1.0 / 0.6 - 0.9 cm IVS Systolic Thickness 1.1 cm LVPW Diastolic Thickness 0.7 cm 0.6 - 1.0 / 0.6 - 0.9 cm LVPW Systolic Thickness 1.0 cm LVOT Diameter 2.1 cm LV Ejection Fraction 2D Teich 31.9 % LV Ejection Fraction MOD 2C 59.8 % LV Ejection Fraction 2C AL 58.5 % LA Diameter 3.8 cm M-MODE Aortic Annulus Diameter 2.7 cm LA Ao Ratio MM 1.5 MV E Point Septal Separation 0.2 cm DOPPLER AV Peak Velocity 183.0 cm/s LVOT Peak Velocity 131.0 cm/s AV Area Cont Eq vti 2.4 cm squared AV Area Cont Eq pk 2.4 cm squared MV Area PHT 2.7 cm squared Mitral E to A Ratio 0.9 MV E' Velocity 61.0 cm/s Mitral E to MV E' Ratio 16.7 Mitral E to LV E' Lateral Ratio 16.7 Mitral E to LV E' Septal Ratio 16.7 TR Peak Velocity 193.7 cm/s TR Peak Gradient 15.0 mmHg TV Peak E Velocity 57.0 cm/s Right Atrial Pressure 3.0 mmHg Pulmonary Artery Systolic Pressu 18.0 mmHg PV Peak Velocity 104.0 cm/s FINDINGS Left Ventricle Normal left ventricular size and systolic function, EF 59 %. No regional wall motion abnormalities. Grade I/IV diastolic dysfunction (abnormal relaxation filling pattern), normal to mildly elevated filling pressures. Right Ventricle The right ventricle is normal in size and function. Right Atrium The right atrium is normal in size. Left Atrium The left atrium is normal in size. Mitral Valve No gross abnormalities noted Aortic Valve No gross abnormalities noted Tricuspid Valve Trace tricuspid valve regurgitation. Pulmonic Valve Pulmonic valve not well visualized. Pericardium Normal pericardium without effusion. Aorta Normal ascending aorta dimension. IVC Inferior vena cava not visualized. CONCLUSIONS Normal left ventricular size and systolic function, EF 59 %. No regional wall motion abnormalities. Grade I/IV diastolic dysfunction (abnormal relaxation filling pattern), normal to mildly elevated filling pressures. Trace tricuspid valve regurgitation. Normal cardiac chamber sizes. There is no pericardial effusion. No similar previous studies are available for comparison Dr Will Michel MD FACC (Electronically Signed) Final Date: 28 February 2022 10:03 S
[2022-02-28] MEDS: metoprolol tartrate 50 mg Tablet 25 MG PO ×2 (09:26→21:19)
[2022-02-28] MEDS: clopidogrel 75 mg Tablet PO (09:28)
[2022-02-28] MEDS: pregabalin 100 mg Capsule 200 MG PO ×2 (09:29→17:31)
[2022-02-28] MEDS: aspirin 81 mg EC Tablet PO (09:29)
[2022-02-28] MEDS: insulin glargine 100 units/1 mL 96 UNIT SUBCUT ×2 (09:31→19:00)
--- NOTE | 2022-02-28 10:22 | XACV_ITS ---
Exam Room: 2 Ht: 157 cm Wt: 118 kg BSA: 2.34 m2 Gender: Female : 1970 Exam Priority: Routine Procedure(s): Procedure Description: Diagnostic procedure Procedure Description: Left Heart Catheterization Procedure Description: Left ventriculography Procedure Description: Coronary Angiography Anand PAREKH; Diagnostic Cath Status: Urgent Diagnostic Findings * Left main is a medium caliber vessel with no significant stenotic lesions. * The left anterior descending artery is a medium caliber vessel which appears to taper off towards the LV apex. The proximal segment of the artery was found to have mild diffuse intimal irregularities. At the takeoff of the first diagonal branch, there was a 40% segmental narrowing in the LAD. The ostium of the first diagonal branch also was found to have around 40% lesion. No other significant stenotic lesions were noted. * The left circumflex artery is a medium to large caliber vessel with no significant obstructive lesion. * The right coronary artery is a medium caliber dominant vessel which appears to bifurcate into the PDA and PLV branches distally. No significant stenotic lesions were noted in these vessels. Conclusions 1. This is a 52-year-old white female with history of hypertension, type 2 diabetes, dyslipidemia and obesity, presenting with prolonged episode of chest pain and palpitations. Elevated troponin T suggesting a non-ST elevation myocardial infarction. In view of her multiple risk factors and the clinical presentation, in order to further evaluate her coronary status, a cardiac catheterization was recommended. Patient underwent left heart catheterization with left and right coronary angiogram and LV angiogram today. The findings are as follows. 2. Around 40% lesion in the LAD at the origin of the first diagonal branch involving the ostium of the diagonal branch. No significant lesions in the other vessels. Normal LV ejection fraction. Elevated LVEDP of 20 mmHg suggesting left-ventricular diastolic dysfunction. Diagnostic RX Recommendation: medical therapy and/or counseling LV EDP: 29 mmHg Ventriculography Ejection Fraction: 65.0 % Left Ventriculography Findings: * The LV gram was performed in the CHAPIN view. The LV cavity appeared to be of normal size. LV ejection fraction was around 65%. The LVEDP was 29 mmHg prior to the LV angiogram and then down to 26, following the LV angiogram. Pressures Phase:Rest AO : 120 / 78 ( 95 ) @ 11:36:00 AM 92 / 67 ( 79 ) @ 11:39:00 AM 127 / 77 ( 98 ) @ 11:49:00 AM 127 / 78 ( 98 ) @ 11:49:00 AM LV : 148 / -8 / 21 @ 11:48:00 AM 136 / 10 / 29 @ 11:48:00 AM 142 / 1 / 26 @ 11:49:00 AM Valves Phase:DefaultPhase AV : 15.0 @ 12:10:15 PM AV Mean Gradient: 12.0 @ 12:10:15 PM Clinical Evaluation EBL: 5mL-10mL Procedural Details Procedure Consent Obtained. Admit Source: Emergency department. Pre-Procedure Time Out. Identified patient by full name and date of as verbalized by the patient/guarantor. Does the consent match the physician's order: Yes. Accurate & Complete Informed Consent: Yes. Inpatient/Outpatient History & Physical on Chart: Yes. If H&P is completed, is and addenduem needed: No; If yes, is the addendum complete: N/A. Visualize and Verify Site with Patient/Guarantor: N/A. Relevant Radiology Images available: N/A. The risks, benefits, and alternatives of sedation and/or procedure were discussed by physician. The patient agrees to continue. Procedure started. [facility] Clinical Fraility Score: 4: Vulnerable. Chest Pain Symptom Assessment: Typical Angina Symptoms. Cardiovascular Instability: No. Vault Maker Indications: New Onset Angina. Current diagnosis: NSTEMI. PERRLA. Strong, equal hand civil structural engineer bilaterally. Lungs clear x 5 lobes. IV Site on Arrival: 18 gauge in the left forearm. IV Fluids: 0.9% NaCl at KVO. 0 mL infused prior to manager labor relations. Pre Procedural Pulses: bilateral radial was 3+. Oxygen started at 2liters/min via nasal canula. right radial was prepped with chloroprep then draped in the usual sterile fashion. Baseline sample Acquired. HR: 98 BPM. Physician notified. Physician arrived. Physician scrubbed in. Immediate Pre-Procedure Time Out. Correct Patient: Yes; Correct Procedure: Yes; Correct Site: Yes; Correct Patient Position: Yes; Correct Supplies: Yes; Dried Flammable Prep: Yes; Blood Products Available: N/A;. Lidocaine 1% infiltrated to the right radial. Arterial access obtained. A 5 hungarian Duc catheter in over wire. Multiple views taken of left coronary artery. Catheter redirected to the RCA. Catheter inserted over the exchange wire. A 5 hungarian JR4 catheter in over wire. Multiple views taken of right coronary artery. Dr Navarro already present. Physician review of cine films. Catheter removed over the exchange wire. A 5 hungarian Angled Pig catheter in over wire. EDP Sample taken: LV 148/-9,21; HR: 84 BPM; SpO2: 94%. LV gram performed in CHAPIN @ 10 mL/second for a total of 30 mL. Patient EF: Normal. EDP Sample taken: LV 136/10,29; HR: 95 BPM; SpO2: 97%. Pullback taken: LV 142/1,26; AO 127/77(98); Mean: 12mmHg, Peak to Peak: 15mmHg, SEP: 25sec/min; HR: 95 BPM; SpO2: 95%. Catheter removed over the exchange wire. Physicians review of cine films. Side port of sheath attached to Normal Saline flush at KVO to maintain patency. A TR Band was successful obtaining hemostatsis at the Right Radial artery insertion site. Catheter out. Post Procedure: Pulses reassessed and unchanged. PERRLA. Strong, equal hand civil structural engineer bilaterally. No VTE prophylaxis required. Medication's Wasted: Lidocaine 1% = 2 mL. Medication's Wasted: Nitro = 49.8 mg. Medication's Wasted: Heparin = 3000 units. Medication's Wasted: Other = 1 ml versed. Medication's Wasted: Other = 50 fentanyl mcg. Total IV fluids: 265 mL. Post-op diagnosis: mild CAD. Complications: none. Estimated blood loss: 5mL-10mL. Responsiveness - Normal response to verbal stimuli; alert and oriented, PERRLA. Airway - Unaffected, no intervention required; spontaneous ventilation. Circulation: W/N/L, pulses unchanged. Procedure completed. Patient transferred by wheelchair to CPRU. Vital chart was stopped. Access Site Site: Right Radial artery Sheath Size: 6 Fr Hemostasis Method: TR Band Hemostasis Success: Successful Procedure Medications Start: 11:23 AM Stop: : AM Medication: Versed Amount: 1 mg Route: I.V. Start: 11:23 AM Stop: : AM Medication: Fentanyl Amount: 50 mcg Route: I.V. Start: 11:24 AM Stop: :24 AM Medication: Versed Amount: 1 mg Route: I.V. Start: 11:33 AM Stop: 11:33 AM Medication: Verapamil Amount: 5 mg Route: I.A. Start: 11:33 AM Stop: 11:33 AM Medication: Nitrogylcerin Amount: 200 mcg Route: I.A. Start: 11:34 AM Stop: 11:34 AM Medication: 0.9% Saline Amount: 200 ml Route: I.V. bolus Start: 11:35 AM Stop: 11:35 AM Medication: Versed Amount: 1 mg Route: I.V. Start: 11:37 AM Stop: 11:37 AM Medication: Heparin Amount: 3000 units Route: I.V. I, the attending physician, have reviewed and verified all procedure medications. Yes, all medications given per verbal order History/Risk Factors Hypertension: Yes Dyslipidemia: Yes Peripheral Arterial Disease (PAD): No Myocardial Infarction (LA): No Obesity: No Tobacco Use: Never Prior Interventions PCI: No CABG: No Valve Surgery: No Report Signatures Finalized by Dr Will Michel MD [facility] on 03/02/2022 05:31 PM
--- NOTE | 2022-02-28 11:22 | W.PM.OPSUD ---
Surgery/Procedure H&P Update DATE OF PROCEDURE: February 28, 2022 DATE H&P PERFORMED: 02/28/22 H&P UPDATE INFORMATION: I have reviewed H&P completed within last 30 days, I have examined patient prior to procedure, No changes to prior documentation and Changes to prior documentation as noted here PREOP DIAGNOSIS: NSTEMI PRIMARY INDICATION FOR PROCEDURE: UAP/NSTEMI PATIENT REASSESSED PRIOR TO SEDATION, WITH NO CHANGE NOTED: Yes PHYSICAL EXAM: alert, oriented x 3, clear to auscultation bilaterally, regular rate & rhythm and operative site marked AIRWAY EVAL/ANESTHESIA PLAN: normal airway, see other exam findings, ASA III, Monitored Anesthesia, Local Anesthesia, Risks, benefits & alternatives of sedation and/or procedure discussed and Patient agrees to continue as planned
--- NOTE | 2022-02-28 14:36 | PC.NURSE ---
around 1205- cpru received pt from laboratory associate post diagnostic c. tr band on right wrist with palpable distal pulse. pt complains of no pain. no bruise or hematoma noted. pt educated with restrictions of right wrist and pt stated understanding. pt placed on vital monitor and will be monitored per protocol.
--- NOTE | 2022-02-28 14:51 | PC.NURSE ---
tr band removed without complications around 220. no bruising noted. pt still complains of no pain. again, pt educated on restrictions of right wrist. pt again stated understanding.
[2022-02-28] MEDS: sodium chloride 0.9% 1,000 ML 100 ML IV (15:45)
--- NOTE | 2022-02-28 15:46 | PC.NURSE ---
RECEIVED PT FROM CPRU POST DIAGNOSTIC CARDIAC LEFT CATH TR BAND HAS BEEN OFF UPON ARRIVAL TO ROOM. NO HEMATOMA, BLEEDING OR SWELLING. RADIAL PULSE IS PALPABLE TO THE TOUCH. ELEVATE RIGHT FA W/A PILLOW. FLUIDS RUNNING AT 100 CC ORDERD POST CATH. CALL LIGHT PROVIDED. AT BEDSIDE.
[2022-02-28 16:48] LABS: Glucose Point of Care 182 mg/dL (70-110)
--- NOTE | 2022-02-28 18:50 | P.PN_ITS ---
Subjective Subjective: She is doing better this morning. No chest pain or pressure. Denies shortness of breath. Pending conversation with cardiology. Vitals/I&O/Wt Last Vital Signs Temp 98 F 02/27/22 20:47 Pulse 78 02/28/22 16:00 Resp 16 02/28/22 16:00 BP 128/85 02/28/22 16:00 Pulse Ox 93 02/28/22 16:00 O2 Del Method 02/28/22 16:00 02/28/22 02/28/22 02/28/22 06:59 14:59 22:59 Intake Total 200 / 200 Balance 200 / 200 Weight last 48 hrs Weight 117.934 kg Physical Exam Narrative: Family at bedside. Const: COMMON NORMALS: patient oriented x3 and alert GENERAL APPEARANCE: cooperative ORIENTATION/CONSCIOUSNESS: Yes awake HENMT: COMMON NORMALS: oropharynx normal Neck/C-Spine: COMMON NORMALS: no JVD Resp: COMMON NORMALS: normal respiratory effort and clear to auscultation bilaterally AUSCULTATION: clear to auscultation bilaterally Cardio: COMMON NORMALS: no JVD, regular rhythm, S1 normal heart sound present, S2 normal heart sound present and No murmurs present (Cardio) RHYTHM: regular rhythm HEART SOUNDS: S1 normal heart sound present and S2 normal heart sound present GI: COMMON NORMALS: Normal to inspection, nondistended, normoactive bowel sounds present, Soft to palpation and non-tender PALPATION: Yes Soft to palpation Extremity: COMMON NORMALS: no joint enlargement and no pedal edema Neuro: COMMON NORMALS: patient oriented x3 and moves all extremities SENS ORIUM/ORIENTATION: Yes alert Skin: COMMON NORMALS: no rashes or lesions noted GENERAL SKIN EXAM: no rashes or lesions noted Data 02/27/22 21:39 02/27/22 21:39 A&P Assessment and plan (1) Non-STEMI (non-ST elevated myocardial infarction): TTE with normal EF, grade 1 diastolic dysfunction. No R WMA. Appreciate cardiology consultation. Additional assessment with coronary angiography, no stenosis requiring intervention per report. Continue Plavix. Can stop aspirin. Stop anticoagulation. Continue metoprolol to help prevent additional tachycardia. Nitroglycerin as needed for possible vasospasm. Continue to optimize cardiovascular risk factors. (2) Chest pain: D-dimer not elevated, low likelihood of PE. Cardiac assessment as above. Chest x-ray without acute abnormality. (3) Palpitations: Continue metoprolol. (4) GERD (gastroesophageal reflux disease): Qualifiers: Esophagitis presence: without esophagitis Qualified Code(s): K21.9 - Gastro-esophageal reflux disease without esophagitis (5) Morbidly obese: (6) Hypertension: Qualifiers: Hypertension type: essential hypertension Qualified Code(s): I10 - Essential (primary) hypertension (7) Hypothyroidism: Qualifiers: Hypothyroidism type: acquired Qualified Code(s): E03.9 - Hypothyroidism, unspecified (8) Hypercholesteremia: (9) Type 2 diabetes mellitus with hyperglycemia: Qualifiers: Diabetes mellitus group home insulin use: without continuous churn buttermaker use Qualified Code(s): E11.65 - Type 2 diabetes mellitus with hyperglycemia Plan #NSTEMI #Abnormal stress test #Diabetes mellitus, insulin-dependent #Hypothyroidism #History of palpitations, SVT, controlled on metoprolol #Hypertension -Continue levothyroxine, lisinopril 20, hydrochlorothiazide Full code Attestations Medical Necessity Statement*: Continue admission for assessment of management following tachyarrhythmia, post angiography care. Coding Level of Care Code Acute Manhole Builder for g Fwd Diagnoses Non-STEMI (non-ST elevated myocardial infarction) I21.4 Chest pain R07.9 Palpitations R00.2 GERD (gastroesophageal reflux disease) K21.9 Esophagitis presence: without esophagitis Morbidly obese E66.01 Hypertension I10 Hypertension type: essential hypertension Hypothyroidism E03.9 Hypothyroidism type: acquired Hypercholesteremia E78.00 Type 2 diabetes mellitus with hyperglycemia E11.65 Diabetes mellitus group home insulin use: without group home use
[2022-02-28 20:47] LABS: Glucose Point of Care 212 mg/dL (70-110)
[2022-02-28] MEDS: atorvastatin 40 mg Tablet 80 MG PO (21:09)
[2022-02-28] MEDS: temazepam 15 mg Capsule PO (21:10)
[2022-02-28] MEDS: acetaminophen 325 mg Tablet 650 MG PO (21:10)
[2022-03-01 03:40] VITALS: BP 140/85; PULSE 79; RESP 17; TEMP 36.7; O2SAT 98
[2022-03-01 06:00] VITALS: PULSE 85
[2022-03-01 06:28] LABS: Basophils % 0.3 %; Eosinophils # 0.1 10^3/uL (0.0-0.8); Eosinophils % 1.8 %; Hematocrit 40.8 % (37.0-47.0); Hemoglobin 12.5 g/dL (11.5-15.3); Lymphocytes # 2.6 10^3/uL (0.8-4.8); Lymphocytes % 38.3 %; Mean Corpuscular HGB Conc 30.6 g/dL (30.0-36.0); Mean Corpuscular Hemoglobin 28.3 pg (28.0-34.0); Mean Corpuscular Volume 92.5 fl (81-99); Mean Platelet Volume 10.9 fL (7.4-10.4); Monocytes # 0.5 10^3/uL (0.2-0.9); Monocytes % 7.8 %; Neutrophils # 3.43 10^3/uL (1.8-7.7); Neutrophils % 51.4 %; Nucleated Red Blood Cells % 0 %; Platelet Count 230 10^3/cmm (130-400); Red Blood Count 4.41 10^6/uL (4.1-5.3); Red Cell Distribution Width 13.3 % (12.1-15.1); White Blood Count 6.7 10^3/uL (4.0-10.0)
[2022-03-01 06:37] LABS: Glucose Point of Care 169 mg/dL (70-110)
[2022-03-01 06:55] LABS: Alanine Aminotransferase 22 U/L (0-33); Albumin Level 3.8 g/dL (3.5-5.2); Alkaline Phosphatase 56 U/L (35-105); Anion Gap 13.9 (5-19); Aspartate Amino Transferase 29 U/L (0-32); Blood Urea Nitrogen 19 mg/dL (6-20); Calcium 9.8 mg/dL (8.5-10.5); Carbon Dioxide 24 mmol/L (22-29); Chloride 105 mmol/L (98-107); Globulin 2.8 g/dL (1.3-4.6); Glomerular Filtration Rate 105.4 mL/min (90-130); Glucose 169 mg/dL (65-115); Magnesium 1.5 mg/dL (1.7-2.3); Osmolality Calculated 294 mOsm/kg (285-295); Potassium 3.9 mmol/L (3.5-5.1); Sodium 139 mmol/L (136-145); Total Bilirubin 0.4 mg/dL (0.15-1.2); Total Protein 6.6 g/dL (6.6-8.7)
[2022-03-01 07:14] VITALS: BP 137/98; PULSE 81; RESP 19; O2SAT 97
[2022-03-01 07:39] VITALS: PULSE 83; O2SAT 98
[2022-03-01] MEDS: pantoprazole DR 40 mg Tablet PO (09:50)
[2022-03-01] MEDS: lisinopril 20 mg Tablet PO (09:50)
[2022-03-01] MEDS: levothyroxine 88 mcg Tablet PO (09:50)
[2022-03-01] MEDS: hydroCHLOROthiazide 25 mg Tablet PO (09:50)
[2022-03-01] MEDS: clopidogrel 75 mg Tablet PO (09:50)
[2022-03-01] MEDS: pregabalin 100 mg Capsule 200 MG PO (09:50)
[2022-03-01] MEDS: insulin glargine 100 units/1 mL 96 UNIT SUBCUT (09:51)
[2022-03-01] MEDS: insulin lispro 100 unit/1 mL SUBCUT ×2 (09:51→13:07)
--- NOTE | 2022-03-01 09:51 | P.PN_ITS ---
Subjective Subjective: Patient is feeling okay with no recurrence of chest pain or palpitations. Telemetry shows normal sinus rhythm/sinus tachycardia. No fever or chills. The right radial arterial puncture site has no hematoma bleeding Medications: Medication Review Details: Current Medications Acetaminophen (Acetaminophen 325 Mg Tablet) 650 mg PO Q6H PRN PRN Reason: Mild/Mod Pain Or Temp >/= 101 Last Admin: 02/28/22 21:10 Dose: 650 mg Al Hydrox/Mg Hydrox/Simethicone (Ilru-Trt-Fbecjczar-Mirna 30 Ml Udc) 30 ml PO Q15M PRN PRN Reason: INDIGESTION Atorvastatin Calcium (Atorvastatin 40 Mg Tablet) 80 mg PO BEDTIME [facility] Last Admin: 02/28/22 21:09 Dose: 80 mg Atropine Sulfate (Atropine 1 Mg/Ml Sdv 1 Ml) 0.5 mg IVP PRN PRN PRN Reason: Symptomatic bradycardia Clopidogrel Bisulfate (Clopidogrel 75 Mg Tablet) 75 mg PO DAILY [facility] Last Admin: 02/28/22 09:28 Dose: 75 mg Dextrose (Dextrose 50% Syringe 50 Ml) 25 ml IVP ONCE PRN; Protocol PRN Reason: hypoglycemia protocol Dextrose (Dextrose 50% Syringe 50 Ml) 50 ml IVP PRN PRN; Protocol PRN Reason: hypoglycemia protocol Fentanyl (Fentanyl 50 Mcg/Ml Inj 2ml) 50 mcg IVP PRN PRN PRN Reason: Prior to sheath removal Glucagon (Glucagon 1 Mg/Ml Inj 1 Ml) 1 mg IM ONCE PRN; Protocol PRN Reason: Adult Acute Hypoglycemia Prot. Hydrochlorothiazide (Hydrochlorothiazide 25 Mg Tablet) 25 mg PO DAILY [facility] Last Admin: 02/28/22 08:29 Dose: 25 mg Sodium Chloride (Sodium Chloride 0.9%) 1,000 mls @ 75 mls/hr IV .[id number] [facility] Last Admin: 03/01/22 04:30 Dose: Not Given Dextrose (D5w) 500 mls @ 100 mls/hr IV ONCE PRN; Protocol PRN Reason: Adult Acute Hypoglycemia Prot Sodium Chloride (Sodium Chloride 0.9%) 1,000 mls @ 100 mls/hr IV .Q10H [facility] Last Infusion: 03/01/22 01:45 Dose: Infused Magnesium Sulfate (Magnesium Sulfate Premix) 4 gm in 100 mls @ 50 mls/hr IV ONCE ONE Stop: 03/01/22 11:59 Insulin Glargine (Insulin Glargine 100 Units/1 Ml) 96 unit SUBCUT BID [facility] Last Admin: 02/28/22 19:00 Dose: 96 unit Insulin Human Lispro (Insulin Lispro 100 Unit/1 Ml) 0 unit SUBCUT WM&BEDTIME [facility]; Protocol Last Admin: 02/28/22 21:11 Dose: 6 unit Levothyroxine Sodium (Levothyroxine 88 Mcg Tablet) 88 mcg PO DAILY [facility] Last Admin: 02/28/22 08:29 Dose: 88 mcg Lisinopril (Lisinopril 20 Mg Tablet) 20 mg PO DAILY [facility] Last Admin: 02/28/22 08:30 Dose: 20 mg Magnesium Hydroxide (Magnesium Hydroxide 30 Ml Udc) 30 ml PO DAILY PRN PRN Reason: CONSTIPATION Metoprolol Tartrate (Metoprolol Tartrate 50 Mg Tablet) 25 mg PO BID@0900,2100 [facility] Last Admin: 02/28/22 21:19 Dose: 25 mg Naloxone HCl (Naloxone 0.4 Mg/Ml Sdv) 0.1 mg IVP Q2M PRN PRN Reason: RESPIRATORY RATE < 8/MIN Nitroglycerin (Nitroglycerin 0.4 Mg Sublingual Tablet) 0.4 mg SUBLINGUAL Q5M PRN PRN Reason: CHEST PAIN Ondansetron HCl (Ondansetron 2 Mg/Ml Sdv 2 Ml) 4 mg IVP Q8H PRN PRN Reason: vomiting, or N/V if npo Pantoprazole Sodium (Pantoprazole Dr 40 Mg Tablet) 40 mg PO BID [facility] Last Admin: 02/28/22 17:31 Dose: 40 mg Pregabalin (Pregabalin 100 Mg Capsule) 200 mg PO BID [facility] Last Admin: 02/28/22 17:31 Dose: 200 mg Temazepam (Temazepam 15 Mg Capsule) 15 mg PO BEDTIME PRN PRN Reason: INSOMNIA Last Admin: 02/28/22 21:10 Dose: 15 mg Vitals/I&O/Wt Last Vital Signs Temp 98.1 F 03/01/22 03:40 Pulse 83 03/01/22 07:39 Resp 19 H 03/01/22 07:14 BP 137/98 03/01/22 07:14 Pulse Ox 98 03/01/22 07:39 O2 Del Method 03/01/22 07:39 O2 Flow Rate 2 03/01/22 07:39 02/28/22 03/01/22 03/01/22 22:59 06:59 14:59 Intake Total 200 / 200 1000 / 1200 240 / 240 Balance 200 / 200 1000 / 1200 240 / 240 Weight last 48 hrs Weight 260 lb Physical Exam Narrative: GENERAL: The patient is alert and oriented times three. Not in any acute distress. HEENT: No significant pallor, icterus or lymphadenopathy.Oral cavity: There are no mucous membrane lesions. NECK: Trachea appears to be central. No masses noted. No JVD or thyromegaly appreciated. RESPIRATORY: Chest is symmetrical. No intercostals muscle retraction or any accessory muscle activation. There is no chest wall tenderness. Breath sounds are heard bilaterally. No rales or rhonchi heard. No evidence of any consolidation. BREASTS: Deferred. HEART: The heart sounds are normal. No S3 or S4. No significant murmurs. No pericardial rub ABDOMEN: No vessel pulsations or distention. No tenderness. No organomegaly appreciated. Bowel sounds are normally heard. : Deferred. RECTAL: Deferred. LYMPHATIC: No lymphadenopathy noted in the neck. EXTREMITIES: No hematoma or bleeding at the arterial puncture site MUSCULOSKELETAL: No acute joint deformities or swelling SKIN: There are no significant rashes or ecchymosis NEUROPSYCHIATRIC: The patient is alert and oriented x3. Appears to be in a good mood. No tremors or rigidity noted. Data 03/01/22 06:07 03/01/22 06:07 Other Labs: Laboratory Last Values WBC 6.7 10^3/uL (4.0-10.0) 03/01/22 06:07 RBC 4.41 10^6/uL (4.1-5.3) 03/01/22 06:07 Hgb 12.5 g/dL (11.5-15.3) 03/01/22 06:07 Hct 40.8 % (37.0-47.0) 03/01/22 06:07 MCV 92.5 fl (81-99) 03/01/22 06:07 MCH 28.3 pg (28.0-34.0) 03/01/22 06:07 MCHC 30.6 g/dL (30.0-36.0) 03/01/22 06:07 RDW 13.3 % (12.1-15.1) 03/01/22 06:07 Plt Count 230 10^3/cmm (130-400) 03/01/22 06:07 MPV 10.9 fL (7.4-10.4) H 03/01/22 06:07 Neut % (Auto) 51.4 % 03/01/22 06:07 Lymph % (Auto) 38.3 % 03/01/22 06:07 Benzie % (Auto) 7.8 % 03/01/22 06:07 Eos % (Auto) 1.8 % 03/01/22 06:07 Baso % (Auto) 0.3 % 03/01/22 06:07 Neut # (Auto) 3.43 10^3/uL (1.8-7.7) 03/01/22 06:07 Lymph # (Auto) 2.6 10^3/uL (0.8-4.8) 03/01/22 06:07 Benzie # (Auto) 0.5 10^3/uL (0.2-0.9) 03/01/22 06:07 Eos # (Auto) 0.1 10^3/uL (0.0-0.8) 03/01/22 06:07 Baso # (Auto) 0.0 10^3/uL (0.0-0.1) 03/01/22 06:07 Nucleated RBC % (auto) 0 % 03/01/22 06:07 Nucleated RBCs # 0.0 /100WBC 03/01/22 06:07 PT 12.80 SECONDS (12.1-14.9) 02/27/22 21:39 INR 0.94 (0.8-1.2) 02/27/22 21:39 APTT 23.5 SECONDS (23.9-36.7) L 02/27/22 21:39 D-Dimer <= 0.27 ug/mIFEU (0-0.59) 02/27/22 21:39 Sodium 139 mmol/L (136-145) 03/01/22 06:07 Potassium 3.9 mmol/L (3.5-5.1) 03/01/22 06:07 Chloride 105 mmol/L (98-107) 03/01/22 06:07 Carbon Dioxide 24 mmol/L (22-29) 03/01/22 06:07 Anion Gap 13.9 (5-19) 03/01/22 06:07 BUN 19 mg/dL (6-20) 03/01/22 06:07 Creatinine 0.6 mg/dL (0.5-0.9) 03/01/22 06:07 GFR Calculation 105.4 mL/min (90-130) 03/01/22 06:07 Glucose 169 mg/dL (65-115) H 03/01/22 06:07 POC Glucose 169 mg/dL (70-110) H 03/01/22 06:32 Estimat Average Glucose 226 02/27/22 21:39 Hemoglobin A1c 9.5 % (4.0-6.0) H 02/27/22 21:39 Calculated Osmolality 294 mOsm/kg (285-295) 03/01/22 06:07 Calcium 9.8 mg/dL (8.5-10.5) 03/01/22 06:07 Magnesium 1.5 mg/dL (1.7-2.3) L 03/01/22 06:07 Total Bilirubin 0.4 mg/dL (0.15-1.2) 03/01/22 06:07 AST 29 U/L (0-32) 03/01/22 06:07 ALT 22 U/L (0-33) 03/01/22 06:07 Alkaline Phosphatase 56 U/L (35-105) 03/01/22 06:07 Troponin T Baseline 40 ng/L (0-10) H 02/27/22 21:39 Troponin T 120 Minute 82.86 ng/L (0-10) H 02/27/22 23:17 Delta Troponin T 42.86 ABS# (0-10) H* 02/27/22 23:17 Troponin T Hi Sens 6Hr 132.2 ng/L (0-10) H 02/28/22 05:25 Troponin T Hi Sens 6Hr Delta 92.2 ng/L (0-12) H* 02/28/22 05:25 NT-Pro-B Natriuret Pep 20 pg/mL (0-125) 02/27/22 21:39 Total Protein 6.6 g/dL (6.6-8.7) 03/01/22 06:07 Albumin 3.8 g/dL (3.5-5.2) 03/01/22 06:07 Globulin 2.8 g/dL (1.3-4.6) 03/01/22 06:07 Triglycerides 226 mg/dL (0-150) H 02/27/22 23:17 Cholesterol 88 mg/dL (0-200) 02/27/22 23:17 LDL Cholesterol, Calc 17 mg/dL (50-129) L 02/27/22 23:17 HDL Cholesterol 26 mg/dL (60-100) L 02/27/22 23:17 LDL/HDL Ratio 0.65 RATIO (0.00-3.22) 02/27/22 23:17 Cholesterol/HDL Ratio 3.38 mg/dL (0.0-4.40) 02/27/22 23: TSH 1.30 uIU/mL (0.27-4.20) 02/27/22 23:17 A&P Assessment and plan (1) Non-STEMI (non-ST elevated myocardial infarction): Likely the patient had a type II LA. I may keep her on Plavix for 30 days and then go back to baby aspirin daily (2) Tachyarrhythmia: Because of the recurrence of the arrhythmia, I may add diltiazem SR 60 mg daily in addition to the metoprolol 50 mg p.o. twice daily (3) Hypertension: The addition of the diltiazem may control the blood pressure better Qualifiers: Hypertension type: essential hypertension Qualified Code(s): I10 - Essential (primary) hypertension (4) Morbidly obese: Importance of lifestyle modification need to be further emphasized. (5) Fibromyalgia: May continue on the current management (6) Hypothyroidism: Clinically seems to be euthyroid. Qualifiers: Hypothyroidism type: acquired Qualified Code(s): E03.9 - Hypothyroidism, unspecified (7) Type 2 diabetes mellitus with hyperglycemia: Aggressive management be appropriate. We will hold off on the metformin. Qualifiers: Diabetes mellitus fpc insulin use: without fpc use Qualified Code(s): E11.65 - Type 2 diabetes mellitus with hyperglycemia (8) Dyslipidemia: Patient is on a high-dose statin. May continue the same. Plan If the patient continues remain stable, may be discharged home today. Continue on the Plavix for 30 days. Appointment the [facility] to be seen by nurse practitioner in 1 week. Appointment with me in the office in 6 weeks. Diltiazem SR 60 mg p.o. daily Continue monitoring the blood pressure and heart rate at home May stay off work for the next 1 week Attestations Medical Necessity Statement*: Possible discharge home today Coding Level of Care Code Acute Vertical Lathe Operator for Chg Fwd History Expanded Problem Focused Exam Detailed Medical Decision Making Moderate Complexity Diagnoses Non-STEMI (non-ST elevated myocardial infarction) I21.4 Tachyarrhythmia R00.0 Hypertension I10 Hypertension type: essential hypertension Morbidly obese E66.01 Fibromyalgia M79.7 Hypothyroidism E03.9 Hypothyroidism type: acquired Type 2 diabetes mellitus with hyperglycemia E11.65 Diabetes mellitus termite inspector insulin use: without termite inspector use Dyslipidemia E78.5
[2022-03-01] MEDS: dilTIAZem ER (12HR) 60 mg Capsule PO (10:11)
[2022-03-01] MEDS: metoprolol tartrate 50 mg Tablet 25 MG PO (10:11)
[2022-03-01] MEDS: magnesium sulfate premix 4 GM/100 ML PREMIX IV (10:11)
[2022-03-01] MEDS: HYDROcodone-acetaminophen 10-325 mg Tablet 1 TAB PO (10:35)
--- NOTE | 2022-03-01 11:01 | PM.DCS ---
Discharge Providers Date of Admission: 02/28/22 02:10 Date of Discharge: March 01, 2022 Attending Provider at Admission: Amanda Bravo MD Attending Provider at Discharge: Carlo Quintanilla Primary Care Provider: Raj Dominguez MD Diagnoses at Discharge Discharge Diagnosis (1) Non-STEMI (non-ST elevated myocardial infarction): Status: Acute (2) Tachyarrhythmia: Status: Acute (3) Hypertension: Status: Acute Qualifiers: Hypertension type: essential hypertension Qualified Code(s): I10 - Essential (primary) hypertension (4) Morbidly obese: Status: Acute (5) Fibromyalgia: Status: Acute (6) Hypothyroidism: Status: Acute Qualifiers: Hypothyroidism type: acquired Qualified Code(s): E03.9 - Hypothyroidism, unspecified Permanent problem details: Waldo-- DOTTIE (7) Type 2 diabetes mellitus with hyperglycemia: Status: Acute Qualifiers: Diabetes mellitus custodial insulin use: without exterminator helper termite use Qualified Code(s): E11.65 - Type 2 diabetes mellitus with hyperglycemia (8) Dyslipidemia: Status: Acute Reason for Visit Reason for Visit: Tachycardia 210 Chest Pains Hospital Course Hospital Course Pleasant 52-year-old lady with history of HTN, palpitations, DM2, HLD, obesity, fibromyalgia was admitted for evaluation after presentation with chest discomfort with pressure and palpitations. Chest discomfort rating into the right shoulder to the back, neck to be developed. Shortness of breath. On presentation also reported heart rate up to 200 range on apple watch. Previously similar episodes for which she was started on metoprolol. On presentation assist of NSTEMI. Was seen by cardiology. Started on medical treatment, additionally assessed by coronary angiography which did not find any obstruction needing intervention. It is recommended to continue Plavix for 30 days, continue optimization of cardiovascular risk factors. For tachyarrhythmias she will continue on metoprolol 25 mg twice daily and 12-hour diltiazem formulation 60 mg once daily. Continue statin. Continue to monitor blood pressure and heart rates at home. Follow-up with cardiology. For hypomagnesemia she received magnesium replacement in the hospital by IV with additional magnesium given today. She is also discharged with magnesium supplement. Please follow-up magnesium levels and provide additional replacement as needed. Please reassess also regarding lower extremity diabetic neuropathy. Physical Exam Narrative: Family at bedside. She reports he is feeling well apart from having some chronic burning in her feet.. Denies any chest pain or pressure. No palpitations. She is requesting to be discharged home. Const: COMMON NORMALS: patient oriented x3 and alert GENERAL APPEARANCE: cooperative ORIENTATION/CONSCIOUSNESS: Yes awake HENMT: COMMON NORMALS: oropharynx normal Neck/C-Spine: COMMON NORMALS: no JVD Resp: COMMON NORMALS: normal respiratory effort and clear to auscultation bilaterally AUSCULTATION: clear to auscultation bilaterally Cardio: COMMON NORMALS: no JVD, regular rhythm, S1 normal heart sound present, S2 normal heart sound present and No murmurs present (Cardio) RHYTHM: regular rhythm HEART SOUNDS: S1 normal heart sound present and S2 normal heart sound present GI: COMMON NORMALS: Normal to inspection, nondistended, normoactive bowel sounds present, Soft to palpation and non-tender PALPATION: Yes Soft to palpation Extremity: COMMON NORMALS: no joint enlargement and no pedal edema OTHER: Right wrist without significant swelling or bruising with intact access site. Neuro: COMMON NORMALS: patient oriented x3 and moves all extremities SENSORIUM/ORIENTATION: Yes alert Skin: COMMON NORMALS: no rashes or lesions noted GENERAL SKIN EXAM: no rashes or lesions noted Discharge Data Studies Completed and Pending Completed Studies During Hospitalization Category Date Time Status XR chest 1V portable [id number] Stat Exams 02/27/22 21:16 Completed CV. echo complete* [id number] Routine Ultrasound 02/28/22 08:46 Completed Pending at discharge Category Date Time Status BUSHEL WORKER request for service Routine Exams 02/28/22 10:22 Ordered Radiology Impressions Chest X-Ray 02/27/22 21:16 IMPRESSION: No acute abnormality demonstrated. Laboratory Results WBC 6.7 10^3/uL (4.0-10.0) 03/01/22 06:07 RBC 4.41 10^6/uL (4.1-5.3) 03/01/22 06:07 Hgb 12.5 g/dL (11.5-15.3) 03/01/22 06:07 Hct 40.8 % (37.0-47.0) 03/01/22 06:07 MCV 92.5 fl (81-99) 03/01/22 06:07 MCH 28.3 pg (28.0-34.0) 03/01/22 06:07 MCHC 30.6 g/dL (30.0-36.0) 03/01/22 06:07 RDW 13.3 % (12.1-15.1) 03/01/22 06:07 Plt Count 230 10^3/cmm (130-400) 03/01/22 06:07 MPV 10.9 fL (7.4-10.4) H 03/01/22 06:07 Neut % (Auto) 51.4 % 03/01/22 06:07 Lymph % (Auto) 38.3 % 03/01/22 06:07 [place] % (Auto) 7.8 % 03/01/22 06:07 Eos % (Auto) 1.8 % 03/01/22 06:07 Baso % (Auto) 0.3 % 03/01/22 06:07 Neut # (Auto) 3.43 10^3/uL (1.8-7.7) 03/01/22 06:07 Lymph # (Auto) 2.6 10^3/uL (0.8-4.8) 03/01/22 06:07 [place] # (Auto) 0.5 10^3/uL (0.2-0.9) 03/01/22 06:07 Eos # (Auto) 0.1 10^3/uL (0.0-0.8) 03/01/22 06:07 Baso # (Auto) 0.0 10^3/uL (0.0-0.1) 03/01/22 06:07 Nucleated RBC % (auto) 0 % 03/01/22 06:07 Nucleated RBCs # 0.0 /100WBC 03/01/22 06:07 PT 12.80 SECONDS (12.1-14.9) 02/27/22 21:39 INR 0.94 (0.8-1.2) 02/27/22 21:39 APTT 23.5 SECONDS (23.9-36.7) L 02/27/22 21:39 D-Dimer <= 0.27 ug/mIFEU (0-0.59) 02/27/22 21:39 Sodium 139 mmol/L (136-145) 03/01/22 06:07 Potassium 3.9 mmol/L (3.5-5.1) 03/01/22 06:07 Chloride 105 mmol/L (98-107) 03/01/22 06:07 Carbon Dioxide 24 mmol/L (22-29) 03/01/22 06:07 Anion Gap 13.9 (5-19) 03/01/22 06:07 BUN 19 mg/dL (6-20) 03/01/22 06:07 Creatinine 0.6 mg/dL (0.5-0.9) 03/01/22 06:07 GFR Calculation 105.4 mL/min (90-130) 03/01/22 06:07 Glucose 169 mg/dL (65-115) H 03/01/22 06:07 POC Glucose 169 mg/dL (70-110) H 03/01/22 06:32 Estimat Average Glucose 226 02/27/22 21:39 Hemoglobin A1c 9.5 % (4.0-6.0) H 02/27/22 21:39 Calculated Osmolality 294 mOsm/kg (285-295) 03/01/22 06:07 Calcium 9.8 mg/dL (8.5-10.5) 03/01/22 06:07 Magnesium 1.5 mg/dL (1.7-2.3) L 03/01/22 06:07 Total Bilirubin 0.4 mg/dL (0.15-1.2) 03/01/22 06:07 AST 29 U/L (0-32) 03/01/22 06:07 ALT 22 U/L (0-33) 03/01/22 06:07 Alkaline Phosphatase 56 U/L (35-105) 03/01/22 06:07 Troponin T Baseline 40 ng/L (0-10) H 02/27/22 21:39 Troponin T 120 Minute 82.86 ng/L (0-10) H 02/27/22 23:17 Delta Troponin T 42.86 ABS# (0-10) H* 02/27/22 23:17 Troponin T Hi Sens 6Hr 132.2 ng/L (0-10) H 02/28/22 05:25 Troponin T Hi Sens 6Hr Delta 92.2 ng/L (0-12) H* 02/28/22 05:25 NT-Pro-B Natriuret Pep 20 pg/mL (0-125) 02/27/22 21:39 Total Protein 6.6 g/dL (6.6-8.7) 03/01/22 06:07 Albumin 3.8 g/dL (3.5-5.2) 03/01/22 06:07 Globulin 2.8 g/dL (1.3-4.6) 03/01/22 06:07 Triglycerides 226 mg/dL (0-150) H 02/27/22 23:17 Cholesterol 88 mg/dL (0-200) 02/27/22 23:17 LDL Cholesterol, Calc 17 mg/dL (50-129) L 02/27/22 23:17 HDL Cholesterol 26 mg/dL (60-100) L 02/27/22 23:17 LDL/HDL Ratio 0.65 RATIO (0.00-3.22) 02/27/22 23:17 Cholesterol/HDL Ratio 3.38 mg/dL (0.0-4.40) 02/27/22 23:17 TSH 1.30 uIU/mL (0.27-4.20) 02/27/22 23:17 Vitals Last Vital Signs Temp 98.1 F 03/01/22 03:40 Pulse 83 03/01/22 07:39 Resp 19 H 03/01/22 07:14 BP 137/98 03/01/22 07:14 Pulse Ox 98 03/01/22 07:39 O2 Del Method 03/01/22 07:39 O2 Flow Rate 2 03/01/22 07:39 Discharge Plan Discharge Patient Disposition: Home Condition: Stable Prescriptions: New clopidogrel 75 mg Tablet 75 mg PO DAILY 30 Days Qty: 30 0RF diltiazem HCl 60 mg Capsule,Extended Release 12 Hr 60 mg PO DAILY Qty: 90 0RF magnesium 250 mg tablet 250 mg PO DAILY Qty: 90 0RF Continued (DME) FreeStyle Rosamaria 2 Sensor Kit See Rx Instructions .Route Qty: 6 3RF Rx Instructions: Change every 14 days. (DME) FreeStyle Rosamaria 2 [place] Misc See Rx Instructions .Route Qty: 1 0RF Rx Instructions: Check BS 4-6 times a day. Jardiance 25 mg tablet 25 mg PO DAILY Qty: 90 3RF cyclobenzaprine 10 mg tablet 10 mg PO BID PRN (Reason: muscle spasm) Qty: 30 1RF pregabalin [Lyrica] 200 mg capsule 200 mg PO BID Qty: 180 1RF Levemir FlexTouch U-100 Insuln 100 unit/mL (3 mL) insulin pen 100 unit SUBCUT BID 30 Days Qty: 60 3RF insulin lispro [Humalog KwikPen Insulin] 100 unit/mL insulin pen See Rx Instructions SUBCUT TID Qty: 45 3RF Rx Instructions: 150-200 take 6 units 201-300 take 20 units greater than 300 recheck in an hour omeprazole magnesium [Prilosec OTC] 20 mg tablet,delayed release (DR/EC) 20 mg PO BID 90 Days Qty: 180 1RF Rx Instructions: Stop famotidine: hydrocodone-acetaminophen 10-325 mg tablet 1 tab PO DAILY PRN (Reason: pain) 30 Days Qty: 30 0RF metformin 500 mg tablet 1,000 mg PO BID fluconazole 150 mg tablet 150 mg PO Q3D PRN (Reason: yeast infection) levothyroxine 88 mcg tablet 88 mcg PO QAM lisinopril-hydrochlorothiazide 20-25 mg tablet 1 tab PO QAM diclofenac sodium 75 mg Tablet,Delayed Release (Dr/Ec) 75 mg PO BID PRN (Reason: Pain) ProAir HFA 90 mcg/actuation Hfa Aerosol Inhaler 2 puff INHALATION QID PRN (Reason: Shortness Of Breath) norethindrone (contraceptive) 0.35 mg tablet 0.35 mg PO BEDTIME rosuvastatin 20 mg tablet 20 mg PO QAM Changed metoprolol tartrate 50 mg tablet 25 mg PO BID Qty: 1 0RF Discharge Orders: Discharge Order (Routine); Ordered 03/01/22 Ordered By: Carlo Quintanilla Referrals: Raj Dominguez MD [Primary Care Provider] - 4-7 days Will Michel MD [Physician] - None (6 weeks) Celia John FNP [Nurse Practitioner] - 1 week Discharge Diet: Cardiac Patient Instructions: Opioid Safety Activity Restrictions/Additional Instructions: Follow-up with your primary doctor for reassessment of tachyarrhythmia, continued optimization of risk factors for coronary disease. Magnesium reassessment and additional replacement. Continue to monitor blood pressure and heart rates at home at least twice daily. Follow-up with your primary doctor regarding lower extremity neuropathy. Discharge Attestations Time Spent in Discharge Care*: greater than 30 min Quality Metrics Clinical Quality Measures [ No reported AMI, CVA or VTE this stay] Coding Level of Care Code Acute Chg FW DC note Diagnoses Non-STEMI (non-ST elevated myocardial infarction) I21.4 Tachyarrhythmia R00.0 Hypertension I10 Hypertension type: essential hypertension Morbidly obese E66.01 Fibromyalgia M79.7 Hypothyroidism E03.9 Hypothyroidism type: acquired Type 2 diabetes mellitus with hyperglycemia E11.65 Diabetes mellitus custodial insulin use: without custodial use Dyslipidemia E78.5
[2022-03-01 11:28] LABS: Glucose Point of Care 181 mg/dL (70-110)
[2022-03-01 13:32] VITALS: PULSE 83; O2SAT 98
[2022-03-01 22:47] LABS: Glucose Point of Care 228 mg/dL (70-110)
== END 2022-03-01 13:41 | disposition home or self-care (01) | DRG 281 ==
LOC: ER 02-28 02:27 → ER IP 02-28 02:32 → CSU 02-28 15:35
PROVIDERS: Internal Medicine Cardiovascular Disease; Admitting Provider Internal Medicine; Emergency Provider Emergency Medicine; PCP Family Medicine; Visit Provider Internal Medicine
PROC: 4A023N7 Measurement of Cardiac Sampling and Pressure, Left Heart, Percutaneous Approach (ICD-10-PCS; principal; 2022-02-28 11:00)
DX: I21.4 Non-ST elevation (NSTEMI) myocardial infarction (principal); Z68.42 Body mass index [BMI] 45.0-49.9, adult; I25.10 Atherosclerotic heart disease of native coronary artery without angina pectoris; I10 Essential (primary) hypertension; E66.01 Morbid (severe) obesity due to excess calories; M79.7 Fibromyalgia; E03.9 Hypothyroidism, unspecified; E11.65 Type 2 diabetes mellitus with hyperglycemia; E11.40 Type 2 diabetes mellitus with diabetic neuropathy, unspecified; E78.5 Hyperlipidemia, unspecified; E83.42 Hypomagnesemia; Z79.84 Long term (current) use of oral hypoglycemic drugs; Z79.4 Long term (current) use of insulin; R00.0 Tachycardia, unspecified; K21.9 Gastro-esophageal reflux disease without esophagitis; Z88.0 Allergy status to penicillin; I25.2 Old myocardial infarction; E78.00 Pure hypercholesterolemia, unspecified; Z79.891 Long term (current) use of opiate analgesic
CPT/HCPCS: 36415; 36416; 71045; 80053; 80061; 82962; 83036; 83735; 83880; 84443; 84484; 85025; 85378; 85610; 85730; 93005; 93306; 93458; 96360; 96361; 96372; 96374; 99152; 99153; 99285; C1769; C1887; C1894; J1644; J1650; J1815; J2250; J3010; J3475; J3490; J7030; Q9967

== ENCOUNTER → 2022-03-16 15:34 | Outpatient (BNVA) | payer BC, SELFPAY | PROVIDERS: PCP Family Medicine; Visit Provider Family Medicine | DX: I25.10 Atherosclerotic heart disease of native coronary artery without angina pectoris (principal); Z09 Encounter for follow-up examination after completed treatment for conditions other than malignant neoplasm; E11.65 Type 2 diabetes mellitus with hyperglycemia | CPT/HCPCS: 80048; 84484 ==

== ENCOUNTER → 2022-06-08 14:53 | Outpatient (BNVA) | payer BC, SELFPAY | PROVIDERS: PCP Family Medicine; Visit Provider Family Medicine | DX: I10 Essential (primary) hypertension (principal) | CPT/HCPCS: 80048; 80053; 80061; 82043; 83036; 83735; 84439; 84443 ==

== ENCOUNTER → 2022-09-14 15:19 | Outpatient (BNVA) | payer BC, SELFPAY | PROVIDERS: PCP Family Medicine; Visit Provider Family Medicine | DX: E11.65 Type 2 diabetes mellitus with hyperglycemia (principal) | CPT/HCPCS: 80053; 80061; 82043; 83036; 84439; 84443; 84480 ==

== ENCOUNTER → 2022-10-02 09:48 | Outpatient (BNVA) | payer BC, SELFPAY | PROVIDERS: PCP Family Medicine; Visit Provider Internal Medicine | DX: E03.9 Hypothyroidism, unspecified (principal); E11.65 Type 2 diabetes mellitus with hyperglycemia | CPT/HCPCS: 80048 ==

== ENCOUNTER 2022-11-06 09:57 | Outpatient (CLI) | payer BC, SELFPAY ==
--- NOTE | 2022-11-06 10:00 | MM_ITS ---
WS: [id number] BILATERAL SCREENING DIGITAL TOMOSYNTHESIS MAMMOGRAM WITH CAD HISTORY: Z12.31 - Encounter for screening mammogram for malignant ... COMPARISON: 10/24/2021, 08/19/2020 Bilateral CC and MLO views with tomosynthesis and synthetic mammography submitted. Computer aided det ection analyzed. Breast composition: There are scattered areas of fibroglandular density. No suspicious masses, microc alcifications or architectural distortion. Benign calcifications in each breast. Benign lymph node RI GHT axillary tail. IMPRESSION: MM/[place] [id number] BI-RADS: 2-Benign FOLLOW UP: 1 Year Follow-up
== END 2022-11-06 09:58 | disposition home or self-care (01) ==
LOC: MOBLMAM 09:59
PROVIDERS: PCP Family Medicine; Visit Provider Nurse Practitioner Women's Health
DX: Z12.31 Encounter for screening mammogram for malignant neoplasm of breast (principal)
CPT/HCPCS: 77063; 77067

== ENCOUNTER 2022-11-20 06:00 | Outpatient (CLI) | payer BC, SELFPAY ==
--- NOTE | 2022-11-20 06:15 | US_ITS ---
WS: [id number] RIGHT UPPER QUADRANT ULTRASOUND HISTORY: nausea and right upper quadrant pain COMPARISON: None available. Liver: 17.0 cm in length. Normal size liver and echogenicity. No bile duct dilatation or mass. Portal Vein: Normal hepatopetal flow with monophasic waveform. Gallbladder: Well-distended gallbladder. There is a small amount of mobile debris within the gallblad denise which does not shadow. CBD: 0.4 cm Pancreas: Normal size and echogenicity. Right kidney: 10.2 cm in length. Normal size and echogenicity. No hydronephrosis or mass. Aorta and IVC: Unremarkable abdominal aorta and IVC. No ascites. IMPRESSION: 1. Mobile debris within the gallbladder. Tiny nonshadowing stones versus some tumefactive sludge. No evidence for acute cholecystitis. Favor small nonshadowing stones. 2. Otherwise negative RIGHT upper quadrant ultrasound.
== END 2022-11-20 06:01 | disposition home or self-care (01) ==
PROVIDERS: PCP Family Medicine; Visit Provider Family Medicine
DX: K81.2 Acute cholecystitis with chronic cholecystitis (principal)
CPT/HCPCS: 76705

== ENCOUNTER → 2022-12-10 15:09 | Outpatient (BNVA) | payer BC, SELFPAY | PROVIDERS: PCP Family Medicine; Visit Provider Internal Medicine | DX: E03.9 Hypothyroidism, unspecified (principal); E11.65 Type 2 diabetes mellitus with hyperglycemia; E78.5 Hyperlipidemia, unspecified | CPT/HCPCS: 80053; 80061; 83036; 84439; 84443 ==

== ENCOUNTER 2022-12-21 07:39 | Day surgery (SDC) | payer BC, SELFPAY ==
[2022-12-21] VITALS (10 sets, daily range): BP systolic 90–130; BP diastolic 44–105; PULSE 64–96; RESP 16–20; TEMP 36.1–36.4; O2SAT 94–100; BMI 40.2
--- NOTE | 2022-12-21 07:42 | W.PM.OPSUD ---
Surgery/Procedure H&P Update DATE OF PROCEDURE: December 21, 2022 DATE H&P PERFORMED: 12/01/22 H&P UPDATE INFORMATION: I have reviewed H&P completed within last 30 days, I have examined patient prior to procedure and No changes to prior documentation PLANNED PROCEDURE: Operation Date: 12/21/22 09:30 Proposed Procedures p [id number] brandon avelar K80.20(Not Applicable) - Bar Ovalle DO
[2022-12-21 07:53] LABS: OR HCG Qualitative Urine Negative (Negative)
[2022-12-21] MEDS: sodium chloride 0.9% 1,000 ML 30 ML IV (08:15)
--- NOTE | 2022-12-21 08:28 | ECG_ITS ---
[facility] Test Date: 2022-12-21 Pat Name: Nona Norris Department: Room: Gender: Female Business Unit Director: : 1970 Requested By: Jeanna Sterling Order Number: [id number] Ramiro MD: Ravi Snowden M.D. Measurements Intervals [place] Rate: 81 P: 66 WA: 145 QRS: 55 QRSD: 83 T: 39 QT: 347 QTc: 403 Interpretive Statements SINUS RHYTHM Compared to ECG 02/28/2022 03:36:13 Myocardial infarct finding no longer present Electronically Signed On 12-21-2022 11:10:33 CDT by Ravi Snowden M.D. [email or web address]
[2022-12-21 08:34] LABS: Basophils % 0.5 %; Eosinophils # 0.2 10^3/uL (0.0-0.8); Eosinophils % 2.3 %; Hematocrit 38.3 % (36-47); Lymphocytes # 2.1 10^3/uL (0.8-4.8); Lymphocytes % 28.1 %; Mean Corpuscular HGB Conc 31.9 g/dL (30-55); Mean Corpuscular Hemoglobin 29.8 pg (27-33); Mean Corpuscular Volume 93.6 fl (85-98); Mean Platelet Volume 10.5 fL (7.4-10.4); Monocytes # 0.5 10^3/uL (0.2-0.9); Neutrophils # 4.65 10^3/uL (1.8-7.7); Neutrophils % 62.6 %; Nucleated Red Blood Cells % 0 %; Platelet Count 253 10^3/cmm (157-399); Red Blood Count 4.09 10^6/uL (3.85-5.65); White Blood Count 7.44 10^3/uL (3.29-11.43)
--- NOTE | 2022-12-21 08:34 | P.ANESASSM_ITS ---
Pre-Anesthetic Assessment Height/Weight: Height 1.57 m Weight 99.79 kg Temp Pulse Resp BP Pulse Ox O2 Del Method 97.5 F L 96 16 130/105 99 Room Air 12/21/22 08:02 12/21/22 08:02 12/21/22 08:02 12/21/22 08:02 12/21/22 08:02 12/21/22 08:06 Operation Date: 12/21/22 09:30 Proposed Procedures p 83270 lap valentino, K80.20(Not Applicable) - Bar Ovalle DO Familial anesthetic complications: None Was Beta Skip taken within 24 hours: Yes Was Clonidine taken within 24 hours: N/A Last intake: Intake Last Liquid Date 12/20/22 Last Liquid Time 21:00 Last Solid Date 12/20/22 Last Solid Time 19:00 Social No alcohol and No tobacco Exam alert, oriented x 3, clear to auscultation bilaterally and regular rate & rhythm Airway Mallampati: Class II Dentition: full CV/HEM Arrythmia, Coronary Artery Disease (40% LAD lesion - medically managed), Hypertension and Myocardial Infarction GI Gastroesophageal Reflux Disease Metabolic Diabetes Mellitus, Hyperlipidemia, Morbid Obesity and Thyroid Disease Anesthetic Plan ASA status: 3 Anesthesia: General Risk of > 500 ml blood loss (7ml/kg in children): No Medications/Allergies Home Medications Medication Instructions Recorded Confirmed Last Taken Type flash glucose scanning reader #1 ea 08/28/21 12/07/22 Unknown Rx (FreeStyle Rosamaria 2 [place]) flash glucose sensor (FreeStyle #6 ea 08/28/21 12/07/22 Unknown Rx Rosamaria 2 Sensor kit) insulin lispro 100 unit/mL See Rx Instructions SUBCUT TID #45 01/30/22 12/18/22 12/20/22 Rx subcutaneous pen (Humalog KwikPen mL (U-100) Insulin) diltiazem HCl 60 mg 60 mg PO DAILY #90 caps 03/03/22 12/18/22 12/21/22 Rx capsule,extended release 12 hr flash glucose scanning reader #1 ea 04/02/22 12/07/22 Unknown Rx (FreeStyle Rosaamria 2 [place]) flash glucose sensor (FreeStyle #3 ea 05/08/22 12/07/22 Unknown Rx Rosamaria 2 Sensor kit) magnesium 250 mg tablet 250 mg PO DAILY #90 tabs 06/09/22 12/18/22 12/20/22 Rx insulin aspart U-100 100 unit/mL 10 unit (0.1 mL) SUBCUT TID #27 mL 06/18/22 12/18/22 12/20/22 Rx (3 mL) subcutaneous pen (Novolog FlexPen U-100 Insulin aspart) insulin detemir U-100 100 unit/mL See Rx Instructions .Route 09/09/22 12/18/22 12/20/22 Rx (3 mL) subcutaneous pen (Levemir .COMPLEX #60 mL FlexPen) semaglutide 1 mg/dose (4 mg/3 mL) 1 mg (0.75 mL) SUBCUT Q7D 30 days 09/23/22 12/18/22 12/11/22 Rx subcutaneous pen injector (Ozempic) #3.75 mL diclofenac sodium 75 mg See Rx Instructions .Route 09/25/22 12/18/22 12/20/22 Rx tablet,delayed release .COMPLEX #60 tabs lansoprazole 30 mg capsule,delayed 30 mg PO DAILY #90 caps 09/28/22 12/18/22 12/20/22 Rx release (Prevacid) lisinopril 20 1 tab PO QAM #90 tabs 09/28/22 12/18/22 12/20/22 Rx mg-hydrochlorothiazide 25 mg tablet metformin 500 mg tablet See Rx Instructions .Route 11/03/22 12/18/22 12/20/22 Rx .COMPLEX #120 tabs lactulose 20 gram/30 mL oral 20 g (30 mL) PO BID constipation 11/09/22 12/18/22 12/18/22 Rx solution #1,200 mL empagliflozin 25 mg tablet See Rx Instructions .Route 11/16/22 12/21/22 12/20/22 Rx (Jardiance) .COMPLEX #90 tabs semaglutide 2 mg/dose (8 mg/3 mL) See Rx Instructions .Route 11/16/22 12/18/22 Unknown Rx subcutaneous pen injector (Ozempic) .COMPLEX #3 mL hydrocodone 10 mg-acetaminophen 1 tab PO BID PRN pain 30 days #36 11/19/22 12/18/22 12/18/22 Rx 325 mg tablet tabs ondansetron HCl 4 mg tablet 4 mg PO Q8H PRN nausea and 12/07/22 12/18/22 Unknown Rx vomiting #30 tabs pregabalin 200 mg capsule (Lyrica) 200 mg PO BID #180 caps 12/10/22 12/18/22 12/20/22 Rx azithromycin 250 mg tablet See Rx Instructions PO .COMPLEX #6 12/17/22 12/18/22 12/20/22 Rx tabs fluconazole 150 mg tablet 150 mg PO DAILY 12/18/22 12/18/22 12/18/22 History levothyroxine 88 mcg tablet 88 mcg PO DAILY 12/18/22 12/18/22 12/20/22 History metoprolol tartrate 50 mg tablet 25 mg PO DAILY 12/18/22 12/18/22 12/20/22 History norethindrone (contraceptive) 0.35 0.35 mg PO DAILY 12/18/22 12/18/22 12/20/22 History mg tablet (Amy) clopidogrel 75 mg tablet (Plavix) 75 mg PO DAILY 12/21/22 12/18/22 12/15/22 History rosuvastatin 20 mg tablet See Rx Instructions .Route 12/21/22 Unknown Rx .COMPLEX #90 tabs Allergies Allergy/AdvReac Type Severity Reaction Status Date / Time indomethacin Allergy headache Verified 12/18/22 09:46 Penicillins Allergy SOB Verified 12/18/22 09:46 PFSH Anesthesia Medical History Atherosclerosis of coronary artery Chronic back pain Fibromyalgia Hypercholesteremia Hypertension Hypothyroidism Waldo-- OZH Morbidly obese No pertinent past medical history neghx: dvt/pe PCP: Dr. Dominguez Non-STEMI (non-ST elevated myocardial infarction) (~04/2022) Palpitations Sustained ventricular tachycardia Type 2 diabetes mellitus with hyperglycemia Surgical History No pertinent past surgical history Family History Mother Diabetes Hypertension Colon cancer dx age 68 Father Diabetes Hypertension Heart disease Denies family history of Ovarian cancer Hypercholesteremia Breast cancer Uterine cancer Thyroid disease Stroke Social History Smoking and tobacco/nicotine status: never used tobacco/nicotine Substance/Drug Use: never Data Anesthesia 12/21/22 08:20 12/21/22 08:20 Short CBC 12/21/22 Range/Units 08:20 WBC 7.44 (3.29-11.43) 10^3/uL Hgb 12.20 (11.27-16.99) g/dL Hct 38.3 (36-47) % MCV 93.6 (85-98) fl Plt Count 253 (157-399) 10^3/cmm Neut % (Auto) 62.6 % Neut # (Auto) 4.65 (1.8-7.7) 10^3/uL Cardiac Studies: Echocardiogram 02/28/22 Sestamibi Stress Test (Cardiology) 01/30 Holter Monitor 11/18/21
[2022-12-21] MEDS: vancomycin 1,500 MG/300 ML PIGGYBACK 200 MG IV (08:40)
[2022-12-21 08:55] LABS: Anion Gap 13.4 (5-19); Blood Urea Nitrogen 31 mg/dL (6-20); Calcium 9.5 mg/dL (8.5-10.5); Carbon Dioxide 22 mmol/L (22-29); Chloride 108 mmol/L (98-107); Glomerular Filtration Rate 75.6 mL/min (90-130); Glucose 225 mg/dL (65-115); Osmolality Calculated 302 mOsm/kg (285-295); Potassium 4.4 mmol/L (3.5-5.1); Sodium 139 mmol/L (136-145)
--- NOTE | 2022-12-21 09:17 | P.OP_ITS ---
Operative Report Date of procedure: December 21, 2022 Pre-op diagnosis: Symptomatic cholelithiasis Post-op diagnosis: same Procedure done: Laparoscopic cholecystectomy Implants: None Specimens removed/disposition: Gallbladder Surgeon: Bar Ovalle DO Anesthesia: General Estimated blood loss (mL): 5 Complications: None apparent Brief History: This very pleasant 52-year-old female that presents my office with abdominal pain. She was diagnosed with symptomatic cholelithiasis. Laparoscopic cholecystectomy was indicated. The risk and benefits were explained and documented. Procedure: Patient was wheeled into the operative room and placed on the OR table in a supine position. Abdomen was inspected prepped and draped in usual sterile fashion. Time-out was performed and all present were in agreement. A 15 blade scalp was used to make a stab incision in the left upper quadrant and intra- abdominal insufflation was achieved using a Veress needle. After localizing the tissue incisions were made and a 5 millimeter trocar was placed into the umbilicus as well as 2 in the right upper quadrant. A 12 millimeter trocar was placed in the epigastrium. Gallbladder was grasped and elevated. The triangle of Calot was carefully dissected using blunt dissection and electrocautery until the triangle of [place] clearly identified. The cystic duct was clipped proximally and double clipped distally. The duct was then ligated proximally. The cystic artery was doubly clipped and ligated. The gallbladder was then removed from the liver bed using electrocautery. The gallbladder was removed from the abdomen using an Endo-Catch bag through the epigastric incision. The liver bed was inspected and no bleeding was seen. The abdomen was irrigated and suctioned. All ports removed. Skin was washed and dried. Incisions were closed with 4-0 Monocryl in a subcuticular interrupted fashion. Skin glue was applied. Patient tolerated the procedure well.
[2022-12-21] MEDS: lidocaine-epi 2% 20 mL INJ 6 ML INJECTION (09:18)
[2022-12-21] MEDS: ondansetron 2 mg/ML SDV 2 mL 4 MG IVP ×2 (09:47→09:54)
[2022-12-21] MEDS: famotidine 20 mg/2 mL INJ IVP (10:29)
[2022-12-21] MEDS: HYDROcodone-acetaminophen 10-325 mg Tablet 1 TAB PO (11:08)
--- NOTE | 2022-12-21 11:25 | ANE.PACU2 ---
Inpatient post-anesthesia follow up: Airway intact: Yes Vital signs: Temperature 97.4 F Pulse Rate 66 Respiratory Rate 16 Blood Pressure 104/64 Pulse Oximetry 96 Oxygen Delivery Me thod Room Air Oxygen Flow Rate 6 Fraction of Inspir ed Oxygen Hydration adequate: Yes Nausea and vomiting: No Pain level: 1 Mental status: Baseline
[2022-12-21 15:03] LABS: Glucose Point of Care 174 mg/dL (70-110)
== END 2022-12-21 11:28 | disposition home or self-care (01) ==
PROVIDERS: Anesthesiology; PCP Family Medicine; Visit Provider Surgery
PROC: 0FT44ZZ Resection of Gallbladder, Percutaneous Endoscopic Approach (ICD-10-PCS; CPT 47562; principal; 2022-12-21 09:30)
DX: K80.10 Calculus of gallbladder with chronic cholecystitis without obstruction (principal); I25.10 Atherosclerotic heart disease of native coronary artery without angina pectoris; I10 Essential (primary) hypertension; I25.2 Old myocardial infarction; E11.9 Type 2 diabetes mellitus without complications; E78.5 Hyperlipidemia, unspecified; E66.01 Morbid (severe) obesity due to excess calories; Z68.41 Body mass index [BMI] 40.0-44.9, adult; Z79.4 Long term (current) use of insulin; M79.7 Fibromyalgia; E78.00 Pure hypercholesterolemia, unspecified; E03.9 Hypothyroidism, unspecified; E11.65 Type 2 diabetes mellitus with hyperglycemia
CPT/HCPCS: 47562; 36415; 36416; 80048; 81025; 82962; 84703; 85025; 88304; 93005; J0330; J1100; J1200; J1885; J2250; J2405; J2704; J2710; J3010; J3370; J3490; J7030

== ENCOUNTER → 2023-02-23 12:55 | Outpatient (BNVA) | payer BC, SELFPAY | PROVIDERS: PCP Family Medicine; Visit Provider Family Medicine | DX: E03.9 Hypothyroidism, unspecified (principal); E11.65 Type 2 diabetes mellitus with hyperglycemia | CPT/HCPCS: 80053; 80061; 82043; 83036; 84439; 84443 ==

== ENCOUNTER → 2023-06-01 12:41 | Outpatient (BNVA) | payer BC, SELFPAY | PROVIDERS: PCP Family Medicine; Visit Provider Family Medicine | DX: E78.00 Pure hypercholesterolemia, unspecified (principal); E11.65 Type 2 diabetes mellitus with hyperglycemia; E03.9 Hypothyroidism, unspecified | CPT/HCPCS: 80053; 80061; 82043; 83036; 84439; 84443 ==

== ENCOUNTER → 2023-10-06 15:22 | Outpatient (BNVA) | payer BC, SELFPAY | PROVIDERS: PCP Family Medicine; Visit Provider Internal Medicine | DX: R07.9 Chest pain, unspecified (principal) | CPT/HCPCS: 93005 ==

== ENCOUNTER → 2023-12-07 14:36 | Outpatient (BNVA) | payer BC, SELFPAY | PROVIDERS: PCP Family Medicine; Visit Provider Family Medicine | DX: E11.65 Type 2 diabetes mellitus with hyperglycemia (principal); E78.00 Pure hypercholesterolemia, unspecified; E03.9 Hypothyroidism, unspecified; E78.5 Hyperlipidemia, unspecified | CPT/HCPCS: 80053; 80061; 82043; 83036; 84439; 84443 ==

== ENCOUNTER → 2024-03-13 15:07 | Outpatient (BNVA) | payer BC, SELFPAY | PROVIDERS: PCP Family Medicine; Visit Provider Family Medicine | DX: E11.65 Type 2 diabetes mellitus with hyperglycemia (principal); E78.00 Pure hypercholesterolemia, unspecified; E53.8 Deficiency of other specified B group vitamins | CPT/HCPCS: 80053; 80061; 82043; 82607; 83036 ==

== ENCOUNTER → 2024-06-14 14:51 | Outpatient (BNVA) | payer BC, SELFPAY | PROVIDERS: PCP Family Medicine; Visit Provider Family Medicine | DX: E11.65 Type 2 diabetes mellitus with hyperglycemia (principal); E78.00 Pure hypercholesterolemia, unspecified; E03.9 Hypothyroidism, unspecified; E78.5 Hyperlipidemia, unspecified | CPT/HCPCS: 80053; 80061; 82043; 83036; 84439; 84443 ==

== ENCOUNTER 2024-09-13 15:14 | Outpatient (CLI) | payer BC, SELFPAY ==
[2024-09-13 16:41] LABS: Estmated Average Glucose 171; Hemoglobin A1C 7.6 % (4.0-6.0)
[2024-09-13 16:56] LABS: Alanine Aminotransferase 17 U/L (0-33); Albumin Level 4.3 g/dL (3.5-5.2); Alkaline Phosphatase 83 U/L (35-105); Aspartate Amino Transferase 18 U/L (0-32); Blood Urea Nitrogen 46 mg/dL (6-20); Calcium 9.9 mg/dL (8.5-10.5); Carbon Dioxide 22 mmol/L (22-29); Chloride 103 mmol/L (98-107); Cholesterol 98 mg/dL (0-200); Free T4 Free Thyroxine 1.27 ng/dL (0.82-1.77); Globulin 3.1 g/dL (1.3-4.6); Glucose 101 mg/dL (65-115); HDL Cholesterol 32 mg/dL (60-100); Osmolality Calculated 304 mOsm/kg (285-295); Sodium 141 mmol/L (136-145); Thyroid Stimulating Hormone 0.60 uIU/mL (0.27-4.20); Total Protein 7.4 g/dL (6.6-8.7); Triglycerides 137 mg/dL (0-150)
[2024-09-13 16:59] LABS: Anion Gap 20.5 (5-19); Potassium 4.5 mmol/L (3.5-5.1)
[2024-09-13 18:32] LABS: Creatinine Urine, Random 189 mg/dL (28-217); Microalbum Creatinine Ratio Ur 5 mg/dL (0-20)
== END 2024-09-13 15:15 | disposition home or self-care (01) ==
PROVIDERS: PCP Family Medicine; Visit Provider Internal Medicine
DX: E11.65 Type 2 diabetes mellitus with hyperglycemia (principal)
CPT/HCPCS: 36415; 80053; 80061; 82044; 83036; 84439; 84443

== ENCOUNTER → 2024-09-15 14:12 | Outpatient (BNVA) | payer BC, SELFPAY | PROVIDERS: PCP Family Medicine; Visit Provider Nurse Practitioner Women's Health | DX: Z01.419 Encounter for gynecological examination (general) (routine) without abnormal findings (principal) | CPT/HCPCS: 87624 ==

== ENCOUNTER 2024-09-22 13:13 | Outpatient (CLI) | payer BC, SELFPAY ==
--- NOTE | 2024-09-22 13:15 | MM_ITS ---
WS: [id number] BILATERAL 3D TOMOSYNTHESIS DIGITAL SCREENING MAMMOGRAPHY WITH CAD CLINICAL INFORMATION: Z12.31 - Encounter for screening mammogram for malignant ... HISTORY: Screening mammogram. No current complaints. COMPARISON: 2022 TECHNIQUE: Bilateral CC and MLO views. FINDINGS: Scattered fibroglandular densities bilaterally. No suspicious focal mass, asymmetry, calcifications, or architectural distortion. No evidence of malignancy. Incidental punctate and lucent centered calcifications. A few incidental intramammary lymph nodes. MM/MM [facility] tomosynthesis [id number] IMPRESSION: DENSITY: There are scattered areas of fibroglandular density. BI-RADS: 2 - Benign. FOLLOW UP: 1 Year Follow-up Recommend return to annual screening mammography.
== END 2024-09-22 13:14 | disposition home or self-care (01) ==
PROVIDERS: PCP Family Medicine; Visit Provider Nurse Practitioner Women's Health
DX: Z12.31 Encounter for screening mammogram for malignant neoplasm of breast (principal); R92.323 Mammographic fibroglandular density, bilateral breasts; R92.1 Mammographic calcification found on diagnostic imaging of breast; D36.0 Benign neoplasm of lymph nodes
CPT/HCPCS: 77063; 77067

== ENCOUNTER 2024-11-06 14:32 | Outpatient (CLI) | payer BC, SELFPAY | END 2024-11-06 14:33 | disposition home or self-care (01) | LOC: RAD 14:38 | PROVIDERS: PCP Family Medicine; Visit Provider Internal Medicine | DX: R01.1 Cardiac murmur, unspecified (principal) | CPT/HCPCS: 93306 ==

== ENCOUNTER → 2024-12-21 12:21 | Outpatient (BNVA) | payer BC, SELFPAY | PROVIDERS: PCP Family Medicine; Visit Provider Family Medicine | DX: E11.65 Type 2 diabetes mellitus with hyperglycemia (principal); E53.8 Deficiency of other specified B group vitamins; G62.9 Polyneuropathy, unspecified; E78.5 Hyperlipidemia, unspecified; E66.01 Morbid (severe) obesity due to excess calories; E03.9 Hypothyroidism, unspecified; E78.00 Pure hypercholesterolemia, unspecified | CPT/HCPCS: 80053; 80061; 82043; 83036; 84439; 84443 ==

== ENCOUNTER 2025-02-20 07:27 | Day surgery (SDC) | payer BC, SELFPAY ==
[2025-02-20 07:47] LABS: OR HCG Qualitative Urine Negative (Negative)
[2025-02-20 07:48] VITALS: BP 114/77; PULSE 106; RESP 18; TEMP 36.1; O2SAT 97; BMI 39.3
--- NOTE | 2025-02-20 07:58 | ANES.PREANE2 ---
Pre-Anesthetic Assessment Height/Weight: Height 1.57 m Weight 97.522 kg Temp Pulse Resp BP Pulse Ox O2 Del Method 97.0 F L 106 H 18 114/77 97 Room Air 02/20/25 07:48 02/20/25 07:48 02/20/25 07:48 02/20/25 07:48 02/20/25 07:48 02/20/25 07:48 Operation Date: 02/20/25 09:00 Proposed Procedures p Colonoscopy 61482 G0121 Z12.11(Not Applicable) - Girish Mcdaniels MD Familial anesthetic complications: none Was Beta Skip taken within 24 hours: N/A Was Clonidine taken within 24 hours: N/A Last intake: Intake Last Liquid Date 02/19/25 Last Liquid Time 22:00 Last Solid Date 02/18/25 Last Solid Time 22:00 Social No alcohol and No tobacco Exam alert, oriented x 3, clear to auscultation bilaterally and regular rate & rhythm Airway Mallampati: Class III Dentition: other (bridge) Comments: Comments: receding mandible CV/HEM Arrythmia, Coronary Artery Disease and Hypertension GI Gastroesophageal Reflux Disease Metabolic Diabetes Mellitus, Morbid Obesity and Thyroid Disease Anesthetic Plan ASA status: 3 Anesthesia: MAC Risk of > 500 ml blood loss (7ml/kg in children): No Medications/Allergies Home Medications ?Medication ?Instructions ?Recorded ?Confirmed ?Last Taken ?Type flash glucose scanning reader #1 ea 04/02/22 12/21/24 Unknown Rx (FreeStyle Rosamaria 2 [place]) metoprolol tartrate 50 mg tablet 25 mg PO BID 12/18/22 02/19/25 02/20/25 06:30 History flash glucose sensor (InProntoStyle #6 ea 03/16/23 12/21/24 Unknown Rx Rosamaria 2 Sensor kit) nitroglycerin 0.4 mg sublingual 0.4 mg sublingual Q5M PRN chest 10/15/23 02/19/25 Unknown Rx tablet pain #30 tabs pregabalin 200 mg capsule 200 mg PO BID 90 days #180 caps 12/15/24 02/19/25 02/19/25 Rx tirzepatide 10 mg/0.5 mL 10 mg (0.5 mL) SUBCUT Q7D #6 mL 01/15/25 02/19/25 02/09/25 Rx subcutaneous pen injector blood-glucose sensor (FreeStyle #2 ea 01/24/25 Unknown Rx Rosamaria 3 Plus Sensor device) aspirin 81 mg tablet,delayed 81 mg PO DAILY 02/19/25 02/19/25 02/16/25 History release diclofenac sodium 75 mg 75 mg PO BID PRN Pain 02/19/25 02/19/25 02/18/25 History tablet,delayed release diltiazem HCl 60 mg 60 mg PO DAILY 02/19/25 02/19/25 02/20/25 06:30 History capsule,extended release 12 hr empagliflozin 25 mg tablet 25 mg PO DAILY 02/19/25 02/19/25 02/19/25 History (Jardiance) fluconazole 150 mg tablet 150 mg PO Q72H PRN Outbreak 02/19/25 02/19/25 Unknown History hydrocodone 10 mg-acetaminophen 1 tab PO BID PRN pain 30 days #36 02/19/25 02/19/25 02/20/25 06:30 Rx 325 mg tablet tabs insulin glargine 100 unit/mL (3 100 unit SUBCUT DAILY 02/19/25 02/19/25 02/19/25 History mL) subcutaneous pen (Lantus Solostar U-100 Insulin) insulin lispro 100 unit/mL 60 unit SUBCUT BID PRN 02/19/25 02/19/25 02/18/25 History subcutaneous pen (Humalog KwikPen Hyperglycemia (U-100) Insulin) lactulose 20 gram/30 mL oral 20 g PO BID PRN constipation 02/19/25 02/19/25 02/19/25 History solution levothyroxine 88 mcg tablet 88 mcg PO DAILY #90 tabs 02/19/25 02/19/25 02/19/25 Rx lisinopril 20 1 tab PO DAILY 02/19/25 02/19/25 02/19/25 History mg-hydrochlorothiazide 25 mg tablet magnesium gluconate 12.5 mg 12.5 mg PO DAILY 02/19/25 02/19/25 02/19/25 History magnesium (250 mg) tablet metformin 500 mg tablet 500 mg PO DAILY 02/19/25 02/19/25 02/19/25 History norethindrone (contraceptive) 0.35 0.35 mg PO DAILY 02/19/25 02/19/25 02/19/25 History mg tablet (Amy) omeprazole 20 mg capsule,delayed 20 mg PO BID 02/19/25 02/19/25 02/19/25 History release ondansetron HCl 4 mg tablet 4 mg PO Q8H PRN Nausea And Vomiting 02/19/25 02/19/25 02/20/25 06:30 History rosuvastatin 20 mg tablet 20 mg PO DAILY 02/19/25 02/19/25 02/19/25 History Allergies Allergy/AdvReac Type Severity Reaction Status Date / Time indomethacin Allergy headache Verified 10/17/24 14:39 Penicillins Allergy SOB Verified 10/17/24 14:39 Current Medications Generic Name Dose Route Start Last Admin Trade Name Freq PRN Reason Stop Dose Admin Sodium Chloride 1,000 mls @ 15 mls/hr 02/20/25 07:34 02/20/25 07:57 Sodium Chloride 0.9% IV 02/21/25 07:33 15 mls/hr .Q24H PRN Administration COLONOSCOPY FLUIDS PFSH Anesthesia Medical History Chronic back pain Atherosclerosis of coronary artery Non-STEMI (non-ST elevated myocardial infarction) (~04/2022) Sustained ventricular tachycardia Palpitations No pertinent past medical history neghx: dvt/pe PCP: Dr. Dominguez Hypercholesteremia Morbidly obese Type 2 diabetes mellitus with hyperglycemia Hypothyroidism [place]-- OZ Fibromyalgia Hypertension Surgical History Status post laparoscopic cholecystectomy Family History Mother Diabetes Hypertension Colon cancer dx age 68 Father Diabetes Hypertension Heart disease Denies family history of Ovarian cancer Hypercholesteremia Breast cancer Uterine cancer Thyroid disease Stroke Social History Smoking and tobacco/nicotine status: never used tobacco/nicotine Data Anesthesia Cardiac Studies: Echocardiogram 11/06/24 Sestamibi Stress Test (Cardiology) 01/30/22 Holter Monitor 11/18/21
--- NOTE | 2025-02-20 08:11 | W.PM.OPSFHP ---
Same Day Surgery H&P Indication for Procedure/HPI DATE OF PROCEDURE: February 20, 2025 CHIEF COMPLAINT/INDICATIONFOR SURGICAL PROCEDURE: need for screening colonoscopy PREOP DIAGNOSIS: need for screening colonoscopy PLANNED PROCEDURE: Operation Date: 02/20/25 09:00 Proposed Procedures p Colonoscopy 96770 G0121 Z12.11(Not Applicable) - Girish Mcdaniels MD Medications/Allergies* Home Medications ?Medication ?Instructions ?Recorded ?Confirmed ?Type metoprolol tartrate 50 mg tablet 25 mg PO BID 12/18/22 02/19/25 History aspirin 81 mg tablet,delayed 81 mg PO DAILY 02/19/25 02/19/25 History release diclofenac sodium 75 mg 75 mg PO BID PRN Pain 02/19/25 02/19/25 History tablet,delayed release diltiazem HCl 60 mg 60 mg PO DAILY 02/19/25 02/19/25 History capsule,extended release 12 hr empagliflozin 25 mg tablet 25 mg PO DAILY 02/19/25 02/19/25 History (Jardiance) fluconazole 150 mg tablet 150 mg PO Q72H PRN Outbreak 02/19/25 02/19/25 History insulin glargine 100 unit/mL (3 100 unit SUBCUT DAILY 02/19/25 02/19/25 History mL) subcutaneous pen (Lantus Solostar U-100 Insulin) insulin lispro 100 unit/mL 60 unit SUBCUT BID PRN 02/19/25 02/19/25 History subcutaneous pen (Humalog KwikPen Hyperglycemia (U-100) Insulin) lactulose 20 gram/30 mL oral 20 g PO BID PRN constipation 02/19/25 02/19/25 History solution lisinopril 20 1 tab PO DAILY 02/19/25 02/19/25 History mg-hydrochlorothiazide 25 mg tablet magnesium gluconate 12.5 mg 12.5 mg PO DAILY 02/19/25 02/19/25 History magnesium (250 mg) tablet metformin 500 mg tablet 500 mg PO DAILY 02/19/25 02/19/25 History norethindrone (contraceptive) 0.35 0.35 mg PO DAILY 02/19/25 02/19/25 History mg tablet (Amy) omeprazole 20 mg capsule,delayed 20 mg PO BID 02/19/25 02/19/25 History release ondansetron HCl 4 mg tablet 4 mg PO Q8H PRN Nausea And Vomiting 02/19/25 02/19/25 History rosuvastatin 20 mg tablet 20 mg PO DAILY 02/19/25 02/19/25 History Allergies/Adverse Reactions Allergy/AdvReac Type Severity Reaction Status Date / Time indomethacin Allergy headache Verified 10/17/24 14:39 Penicillins Allergy SOB Verified 10/17/24 14:39 Current Medications: Generic Name Dose Route Start Last Admin Trade Name Freq PRN Reason Stop Dose Admin Sodium Chloride 1,000 mls @ 15 mls/hr 02/20/25 07:34 02/20/25 07:57 Sodium Chloride 0.9% IV 02/21/25 07:33 15 mls/hr .Q24H PRN Administration COLONOSCOPY FLUIDS Pertinent History/Comorbid Conditions* Medical History (Updated 04/13/24 @ 16:46 by Suze Moss NP) Chronic back pain Atherosclerosis of coronary artery Non-STEMI (non-ST elevated myocardial infarction) (~04/2022) Sustained ventricular tachycardia Palpitations No pertinent past medical history neghx: dvt/pe PCP: Dr. Dominguez Hypercholesteremia Morbidly obese Type 2 diabetes mellitus with hyperglycemia Hypothyroidism [place]-- OZH Fibromyalgia Hypertension Surgical History (Updated 09/08/23 @ 15:30 by Sonia Bangura APN, WHCHARLIE) Status post laparoscopic cholecystectomy Family History (Updated 07/24/20 @ 08:45 by Vivian Cox) Colon cancer Mother dx age 68 Diabetes Mother Father Heart disease Father Hypertension Mother Father Denies family history of Ovarian cancer Hypercholesteremia Breast cancer Uterine cancer Thyroid disease Stroke Social History Smoking and tobacco/nicotine status: never used tobacco/nicotine Pertinent Exam Findings alert, oriented x 3, clear to auscultation bilaterally and regular rate & rhythm Recommendations Surgery/Procedure today Coding Level of Care Code Acute Code for Chg Fwd
--- NOTE | 2025-02-20 08:18 | ANES.PREANE2 ---
Pre-Anesthetic Assessment Height/Weight: Height 1.57 m Weight 97.522 kg Temp Pulse Resp BP Pulse Ox O2 Del Method 97.0 F L 106 H 18 114/77 97 Room Air 02/20/25 07:48 02/20/25 07:48 02/20/25 07:48 02/20/25 07:48 02/20/25 07:48 02/20/25 07:48 Preop Diagnosis: need for screening colonoscopy Operation Date: 02/20/25 09:00 Proposed Procedures p Colonoscopy 21684 G0121 Z12.11(Not Applicable) - Girish Mcdaniels MD Was Beta Skip taken within 24 hours: Yes Was Clonidine taken within 24 hours: N/A Last intake: Intake Last Liquid Date 02/19/25 Last Liquid Time 22:00 Last Solid Date 02/18/25 Last Solid Time 22:00 Last Intake: 08:22 Social Alcohol and Tobacco Exam alert and oriented x 3 Airway Submandibular: within normal limits Cervical ROM: within normal limits Mallampati: Class III Dentition: full History/ROS No significant history except as noted Pulmonary Sleep Apnea CV/HEM Coronary Artery Disease None reported Hepatic None reported GI None reported Metabolic Diabetes Mellitus and Morbid Obesity Anesthetic Plan ASA status: 3 Anesthesia: Anesthesia Evaluation Risk of > 500 ml blood loss (7ml/kg in children): Yes, adequate IV access and fluids planned Medications/Allergies Home Medications ?Medication ?Instructions ?Recorded ?Confirmed ?Last Taken ?Type flash glucose scanning reader #1 ea 04/02/22 12/21/24 Unknown Rx (FreeStyle Rosamaria 2 [place]) metoprolol tartrate 50 mg tablet 25 mg PO BID 12/18/22 02/19/25 02/20/25 06:30 History flash glucose sensor (Powervationyle #6 ea 03/16/23 12/21/24 Unknown Rx Rosamaria 2 Sensor kit) nitroglycerin 0.4 mg sublingual 0.4 mg sublingual Q5M PRN chest 10/15/23 02/19/25 Unknown Rx tablet pain #30 tabs pregabalin 200 mg capsule 200 mg PO BID 90 days #180 caps 12/15/24 02/19/25 02/19/25 Rx tirzepatide 10 mg/0.5 mL 10 mg (0.5 mL) SUBCUT Q7D #6 mL 01/15/25 02/19/25 02/09/25 Rx subcutaneous pen injector blood-glucose sensor (FreeStyle #2 ea 01/24/25 Unknown Rx Rosamaria 3 Plus Sensor device) aspirin 81 mg tablet,delayed 81 mg PO DAILY 02/19/25 02/19/25 02/16/25 History release diclofenac sodium 75 mg 75 mg PO BID PRN Pain 02/19/25 02/19/25 02/18/25 History tablet,delayed release diltiazem HCl 60 mg 60 mg PO DAILY 02/19/25 02/19/25 02/20/25 06:30 History capsule,extended release 12 hr empagliflozin 25 mg tablet 25 mg PO DAILY 02/19/25 02/19/25 02/19/25 History (Jardiance) fluconazole 150 mg tablet 150 mg PO Q72H PRN Outbreak 02/19/25 02/19/25 Unknown History hydrocodone 10 mg-acetaminophen 1 tab PO BID PRN pain 30 days #36 02/19/25 02/19/25 02/20/25 06:30 Rx 325 mg tablet tabs insulin glargine 100 unit/mL (3 100 unit SUBCUT DAILY 02/19/25 02/19/25 02/19/25 History mL) subcutaneous pen (Lantus Solostar U-100 Insulin) insulin lispro 100 unit/mL 60 unit SUBCUT BID PRN 02/19/25 02/19/25 02/18/25 History subcutaneous pen (Humalog KwikPen Hyperglycemia (U-100) Insulin) lactulose 20 gram/30 mL oral 20 g PO BID PRN constipation 02/19/25 02/19/25 02/19/25 History solution levothyroxine 88 mcg tablet 88 mcg PO DAILY #90 tabs 02/19/25 02/19/25 02/19/25 Rx lisinopril 20 1 tab PO DAILY 02/19/25 02/19/25 02/19/25 History mg-hydrochlorothiazide 25 mg tablet magnesium gluconate 12.5 mg 12.5 mg PO DAILY 02/19/25 02/19/25 02/19/25 History magnesium (250 mg) tablet metformin 500 mg tablet 500 mg PO DAILY 02/19/25 02/19/25 02/19/25 History norethindrone (contraceptive) 0.35 0.35 mg PO DAILY 02/19/25 02/19/25 02/19/25 History mg tablet (Amy) omeprazole 20 mg capsule,delayed 20 mg PO BID 02/19/25 02/19/25 02/19/25 History release ondansetron HCl 4 mg tablet 4 mg PO Q8H PRN Nausea And Vomiting 02/19/25 02/19/25 02/20/25 06:30 History rosuvastatin 20 mg tablet 20 mg PO DAILY 02/19/25 02/19/25 02/19/25 History Allergies Allergy/AdvReac Type Severity Reaction Status Date / Time indomethacin Allergy headache Verified 10/17/24 14:39 Penicillins Allergy SOB Verified 10/17/24 14:39 Current Medications Generic Name Dose Route Start Last Admin Trade Name Freq PRN Reason Stop Dose Admin Sodium Chloride 1,000 mls @ 15 mls/hr 02/20/25 07:34 02/20/25 07:57 Sodium Chloride 0.9% IV 02/21/25 07:33 15 mls/hr .Q24H PRN Administration COLONOSCOPY FLUIDS PFSH Anesthesia Medical History Chronic back pain Atherosclerosis of coronary artery Non-STEMI (non-ST elevated myocardial infarction) (~04/2022) Sustained ventricular tachycardia Palpitations No pertinent past medical history neghx: dvt/pe PCP: Dr. Dominguez Hypercholesteremia Morbidly obese Type 2 diabetes mellitus with hyperglycemia Hypothyroidism [place]-- OZH Fibromyalgia Hypertension Surgical History Status post laparoscopic cholecystectomy Family History Mother Diabetes Hypertension Colon cancer dx age 68 Father Diabetes Hypertension Heart disease Denies family history of Ovarian cancer Hypercholesteremia Breast cancer Uterine cancer Thyroid disease Stroke Social History Smoking and tobacco/nicotine status: never used tobacco/nicotine Data Anesthesia Cardiac Studies: Echocardiogram 11/06/24 Sestamibi Stress Test (Cardiology) 01/30/22 Holter Monitor 11/18/21
[2025-02-20 09:13] VITALS: BP 96/62; PULSE 87; RESP 16; TEMP 36.4; O2SAT 96
[2025-02-20 09:35] VITALS: BP 96/66; PULSE 80; RESP 16; O2SAT 96
--- NOTE | 2025-02-20 09:40 | ANE.PACU2 ---
Inpatient post-anesthesia follow up: Airway intact: Yes Vital signs: Temperature 97.5 F Pulse Rate 80 Respiratory Rate 16 Blood Pressure 96/66 Pulse Oximetry 96 Oxygen Delivery Me thod Room Air Oxygen Flow Rate Fraction of Inspir ed Oxygen Hydration adequate: Yes Nausea and vomiting: No Pain level: 1 Mental status: Baseline
== END 2025-02-20 09:40 | disposition home or self-care (01) ==
PROVIDERS: Anesthesiology; PCP Family Medicine; Visit Provider Surgery
PROC: 0DJD8ZZ Inspection of Lower Intestinal Tract, Via Natural or Artificial Opening Endoscopic (ICD-10-PCS; CPT 45378; principal; 2025-02-20 09:00)
DX: Z12.11 Encounter for screening for malignant neoplasm of colon (principal); I25.10 Atherosclerotic heart disease of native coronary artery without angina pectoris; I25.2 Old myocardial infarction; I47.10 Supraventricular tachycardia, unspecified; R00.2 Palpitations; E66.01 Morbid (severe) obesity due to excess calories; Z68.39 Body mass index [BMI] 39.0-39.9, adult; E03.9 Hypothyroidism, unspecified; M79.7 Fibromyalgia; I10 Essential (primary) hypertension; E11.649 Type 2 diabetes mellitus with hypoglycemia without coma; Z80.9 Family history of malignant neoplasm, unspecified; Z83.3 Family history of diabetes mellitus; Z82.49 Family history of ischemic heart disease and other diseases of the circulatory system; Z79.82 Long term (current) use of aspirin; Z79.4 Long term (current) use of insulin; Z79.84 Long term (current) use of oral hypoglycemic drugs; K21.9 Gastro-esophageal reflux disease without esophagitis; G47.30 Sleep apnea, unspecified; Z79.891 Long term (current) use of opiate analgesic
CPT/HCPCS: 36416; 45378; 81025; 82962; J2704; J7030